=== PATIENT | female | born 1980 | race Caucasian/White ===

== ENCOUNTER 2016-05-02 23:28 | Emergency (ER) | payer OTHER ==
[~2016-05-02] VITALS: Ht 162.6 cm; Wt 99.1 kg
[~2016-05-02 23:28] MED LIST: FLUO20CA35 PO; LORA-741 PO; PRLSR20 PO
[2016-05-02 23:31] VITALS: TEMP 36.5; Ht 162.6 cm; Wt 99.1 kg
[2016-05-02 23:45] VITALS: O2SAT 96
[2016-05-02] MEDS ORDERED: BENZ1CAP90 PO (23:48)
[2016-05-03] MEDS ORDERED: NITROGLYCERIN 0.4 MG SL PER TAB CHARGE SL PRN
[2016-05-03 00:02] LABS: BASO % 0.5 %; BASO ABS # 0.05 K/uL (0-0.2); COMPLETE YES; EOS % 1.8 %; HEMATOCRIT 39.3 % (37-47); IG% 0.2 %; LYMPH % 15.5 %; LYMPH ABS # 1.46 K/uL (1.2-3.4); MEAN CORPUSCULAR HEMOGLOBIN 31.1 pg (25-34); MEAN CORPUSCULAR HGB CONC 33.1 g/dl (32-36); MEAN PLATELET VOLUME 11.1 fL (7.4-10.4); MONO % 6.2 %; NEUT % 75.8 %; PLATELET COUNT 260 K/uL (130-400); RED BLOOD COUNT 4.18 M/uL (4.2-5.4); WHITE BLOOD COUNT 9.42 K/uL (4.8-10.8)
[2016-05-03 00:11] LABS: ALT/SGPT 36 U/L (12-78); BLOOD UREA NITROGEN 10 mg/dl (7-18); BUN/CREATININE RATIO 11.3 (10-20); CALCIUM 9.2 mg/dl (8.5-10.1); CARBON DIOXIDE 25 mmol/L (21-32); CHLORIDE 104 mmol/L (98-107); CREATININE 0.86 mg/dl (0.60-1.20); GLUCOSE 96 mg/dl (70-99); POTASSIUM 4.1 mmol/L (3.5-5.1); SODIUM 141 mmol/L (136-145)
[2016-05-03 00:16] LABS: ALKALINE PHOSPHATASE 89 U/L (45-117); AST/SGOT 19 U/L (15-37)
[2016-05-03 00:28] LABS: PREG INTERNAL NEGATIVE QC NEG CLEAR BACKGROUND; PREG INTERNAL POSITIVE QC POS CONTROL LINE
[2016-05-03] MEDS ORDERED: LEVO-18 PO (02:09)
[2016-05-03] MEDS ORDERED: LEVOFLOXACIN 250 MG TAB PO ONE (02:15)
[2016-05-03] MEDS ORDERED: ALBUTEROL HFA 8 GM INHALER INH ONE (02:15)
--- NOTE | 2016-05-03 02:19 | EMERGENCY ROOM VISIT NOTE ---
History Report prepared by Carmelo: Kelsi Lorenzo Under the Supervision of: Dr. Lilliam Crespo M.D. First contact with patient: 23:47 Chief Complaint: CHEST PAIN Stated Complaint: CHEST PAIN Nursing Triage Summary: pt c/o cough for a couple days, went to PCP and received cough medicine. patient states she started having intermittent chest tightness last night with numbness and tingling in bilateral arms. pain went away. pt states this evening around 5 pt c/o midsternal chest pain, numbness to left arm and SOB. patient stated pain subsided once the engineer internship arrived to the house but has now increased to 8/10 in ER. patient denies SOB but c/o some left arm numbness. prehospital patient received 4 baby asa patient was in the [facility] 2 weeks ago for 1 week History of Present Illness The patient is a 35 year old female who presents to the Emergency Room with complaints of intermittent chest pain that began yesterday. The patient states that she had a cough, sore throat, ear ache, and chest tightness. She saw her PCP yesterday and her blood pressure was normal, but her heart rate was elevated. Her doctor did see some fluid behind her ears. This evening, the patient continued to have central chest pain and also developed tingling in her hands and fingers. She does have some shortness of breath when her pain is at its worst. Currently, she complains of some left leg pain and generalized weakness. She is not on any control or hormone therapies. She does not smoke. The patient states that she was in the emergency room about 2 weeks ago for similar symptoms. She had high blood pressure issues years ago but has not had problems recently. Per nursing notes, the patient was given 4 baby aspirin prior to arrival. Source of History: patient Onset: yesterday Position: chest (central) Quality: other (tightness) Timing: intermittent Associated Symptoms: + SOB (with intense pain), + weakness Note: Other symptoms: hand/finger tingling, left leg pain Review of Systems See HPI for pertinent positives & negatives. A total of 10 systems reviewed and were otherwise negative. Past Medical & Surgical Medical Problems: (1) Abdominal pain (2) Abdominal pain (3) Anxiety Disorder, Unspecified (4) Gastro-Esophageal Reflux Disease Without Esophagitis Surgical Problems: (1) Cholecystectomy (2) H/O colonoscopy (3) H/O lumbar discectomy (4) Hiatal hernia Family History Diabetes mellitus Heart disease Hypertension Kidney disease Kidney stones Seizures Social History Smoking Status: Never Smoker Alcohol Use: none Drug Use: none Marital Status: Housing Status: lives with family Occupation Status: employed Current/Historical Medications Scheduled Levofloxacin (Levaquin), 750 MG PO DAILY Scheduled PRN Benzonatate (Tessalon Perles), 200 MG PO TID PRN for Cough Allergies Coded Allergies: Ibuprofen (Verified Allergy, Intermediate, "throat swelling.", 01/26/16) Vinegar (Verified Allergy, Unknown, SWELLING IN THROAT, 01/26/16) Physical Exam Vital Signs Date Time Temp Pulse Resp B/P Pulse Ox O2 Delivery O2 Flow Rate FiO2 05/03/16 02:24 58 20 112/79 96 05/03/16 01:33 75 20 124/81 95 Room Air 05/03/16 00:20 67 20 128/85 93 Room Air 05/03/16 00:05 102 20 138/99 98 Room Air 05/02/16 23:45 96 Room Air 05/02/16 23:40 68 05/02/16 23:31 36.5 71 18 152/106 97 Room Air 05/02/16 23:31 98 Room Air Physical Exam Vital signs reviewed. General: Well-appearing 35 year old female, in no significant distress. HEENT: No scleral icterus, PERRLA, neck supple. Atraumatic. Cardiovascular: Regular rate and rhythm, no extra sounds. Pulmonary: Clear to auscultation bilaterally, normal work of breathing. Abdomen: Soft, nontender, nondistended, positive bowel sounds. Musculoskeletal: Atraumatic, no peripheral edema. Neurologic: Patient awake alert and oriented x 3, full strength in all 4 extremities. Cranial nerves 2 through 12 grossly intact. Skin: Warm, dry, no rash Medical Decision & Procedures ER Provider Diagnostic Interpretation: X-ray per my interpretation. Chest x-ray: Left perihilar fullness, concerning for atelectasis vs. infiltrate. No evidence of failure. Normal mediastinum. Laboratory Results 05/02/16 23:40 Red Blood Count 4.18, Mean Corpuscular Volume 94.0, Mean Corpuscular Hemoglobin 31.1, Mean Corpuscular Hemoglobin Concent 33.1, Mean Platelet Volume 11.1, Neutrophils (%) (Auto) 75.8, Lymphocytes (%) (Auto) 15.5, Monocytes (%) (Auto) 6.2, Eosinophils (%) (Auto) 1.8, Basophils (%) (Auto) 0.5, Neutrophils # (Auto) 7.14, Lymphocytes # (Auto) 1.46, Monocytes # (Auto) 0.58, Eosinophils # (Auto) 0.17, Basophils # (Auto) 0.05 05/02/16 23:40 Test 05/02/16 23:40 05/03/16 00:01 White Blood Count 9.42 K/uL (4.8-10.8) Red Blood Count 4.18 M/uL (4.2-5.4) Hemoglobin 13.0 g/dL (12.0-16.0) Hematocrit 39.3 % (37-47) Mean Corpuscular Volume 94.0 fL (80-100) Mean Corpuscular Hemoglobin 31.1 pg (25-34) Mean Corpuscular Hemoglobin Concent 33.1 g/dl (32-36) Platelet Count 260 K/uL (130-400) Mean Platelet Volume 11.1 fL (7.4-10.4) Neutrophils (%) (Auto) 75.8 % Lymphocytes (%) (Auto) 15.5 % Monocytes (%) (Auto) 6.2 % Eosinophils (%) (Auto) 1.8 % Basophils (%) (Auto) 0.5 % Neutrophils # (Auto) 7.14 K/uL (1.4-6.5) Lymphocytes # (Auto) 1.46 K/uL (1.2-3.4) Monocytes # (Auto) 0.58 K/uL (0.11-0.59) Eosinophils # (Auto) 0.17 K/uL (0-0.5) Basophils # (Auto) 0.05 K/uL (0-0.2) RDW Standard Deviation 46.6 fL (36.4-46.3) RDW Coefficient of Variation 13.6 % (11.5-14.5) Immature Granulocyte % (Auto) 0.2 % Immature Granulocyte # (Auto) 0.02 K/uL (0.00-0.02) Anion Gap 12.0 mmol/L (3-11) Est Creatinine Clear Calc Drug Dose 102.5 ml/min Estimated GFR () 100.0 Estimated GFR (Non- 86.3 BUN/Creatinine Ratio 11.3 (10-20) Calcium Level 9.2 mg/dl (8.5-10.1) Total Bilirubin 0.3 mg/dl (0.2-1) Direct Bilirubin 0.1 mg/dl (0-0.2) Aspartate Amino Transf (AST/SGOT) 19 U/L (15-37) Alanine Aminotransferase (ALT/SGPT) 36 U/L (12-78) Alkaline Phosphatase 89 U/L (45-117) Total Creatine Kinase 56 U/L (26-192) Creatine Kinase MB < 0.5 ng/ml (0.5-3.6) Creatine Kinase MB Ratio (0-3.0) Total Protein 7.1 gm/dl (6.4-8.2) Albumin 3.5 gm/dl (3.4-5.0) Lipase 121 U/L (73-393) Human Chorionic Gonadotropin, Qual NEG (NEG) Bedside D-Dimer 218 ng/mlFEU (0-450) Bedside Troponin I 0.000 ng/ml (0-0.045) Laboratory results per my review. Medications Administered Medications (Trade) Dose Ordered Sig/Eduin Route Start Time Stop Time Status Last Admin Dose Admin Nitroglycerin (Nitrostat Tab) 0.4 mg Q5M PRN SL 05/03/16 00:00 05/03/16 02:46 DC 05/02/16 23:59 0.4 MG Levofloxacin (Levaquin Tab) 750 mg NOW ONCE PO 05/03/16 02:15 05/03/16 02:16 DC 05/03/16 02:17 750 MG Albuterol (Ventolin Hfa Inhaler) 2 puffs NOW ONCE INH 05/03/16 02:15 05/03/16 02:16 DC 05/03/16 02:17 2 PUFFS ECG Indication: chest pain Rate (beats per minute): 70 Rhythm: sinus with SA Findings: no acute ischemic change, no ectopy ED Course 2351: Past medical records reviewed. The patient was evaluated in room B6. A complete history and physical examination was performed. 0000: Ordered Nitroglycerin 0.4 mg SL. 0215: Ordered Albuterol 2 puffs INH, Levofloxacin 750 mg PO. 0217: Upon reevaluation, the patient was resting comfortably. I discussed findings with the patient. She verbalized agreement of the treatment plan. The patient was discharged home. Medical Decision DDx: Acute coronary syndrome, pulmonary embolus, aortic dissection, musculoskeletal pain, pneumonia, pleural effusion, pneumothorax This pt was evaluated and appeared to be in no distress. EKG reveals no acute changes. Pt was given 1 NTG SL with no significant changes. CXR to my interpretation reveals a small area of fullness that with the pt's sx is concerning for PNA. Pt was feeling improved with nebulizer tx. Lab work is unrevealing. Pt was tx with oral Levaquin and dx with albuterol inhaler. She will f/u with her PCP for further management and return to the ED for worsening of symptoms or any medical concerns. Impression Primary Impression: Pneumonia Scribe Attestation The scribe's documentation has been prepared under my direction and personally reviewed by me in its entirety. I confirm that the note above accurately reflects all work, treatment, procedures, and medical decision making performed by me. Departure Information Dispostion Home / Self-Care Prescriptions Levofloxacin (LEVAQUIN) 750 Mg Tab 750 MG PO DAILY, #6 TAB Prov: Lilliam Crespo M.D. 05/03/16 Referrals Renetta Pleitez C.R.N.P (PCP) Patient Instructions My [facility] Additional Instructions Diagnosis: Pneumonia Levaquin 750 mg daily for 6 more days. Albuterol 2 puffs every 4 hours as needed for cough/wheeze. Tylenol 650 mg every 6 hours as needed for pain or fever. Follow-up with your primary care provider within the next 2-3 days. Return to the ER for worsening of symptoms or any medical concerns. Problem Qualifiers Primary Impression: Pneumonia Pneumonia type: due to unspecified organism Laterality: left Lung location : unspecified part of lung Qualified Codes: J18.9 - Pneumonia, unspecified organism
[2016-05-03 02:24] VITALS: BP 112/79; PULSE 58; O2SAT 96
--- NOTE | 2016-05-03 07:21 | DIAGNOSTIC IMAGING REPORT ---
SINGLE VIEW CHEST CLINICAL HISTORY: Atypical chest pain. FINDINGS: An AP, portable, upright chest radiograph is compared to study dated 01/06/2014. The cardiomediastinal silhouette is unremarkable. There are low lung volumes. The lungs and pleural spaces are clear. No pneumothorax is seen. The bony thorax is grossly intact. Cholecystectomy clips are identified in the right upper quadrant. IMPRESSION: Low lung volumes with no active disease in the chest. Electronically signed by: Ori Rodrigues M.D. 05/03/2016 7:19 AM Dictated Date/Time: 05/03/2016 7:19 AM
[2016-08-15] MEDS ORDERED: BND25 PO (21:54)
== END 2016-05-03 02:26 | disposition home or self-care (01) ==
LOC: EDBD 23:28 → C.EDB 23:31
DX: J18.9 Pneumonia, unspecified organism (principal); F41.9 Anxiety disorder, unspecified; K21.9 Gastro-esophageal reflux disease without esophagitis; Z90.49 Acquired absence of other specified parts of digestive tract; Z98.890 Other specified postprocedural states; Z79.899 Other long term (current) drug therapy; Z88.8 Allergy status to other drugs, medicaments and biological substances; Z91.018 Allergy to other foods; Z83.3 Family history of diabetes mellitus; Z82.49 Family history of ischemic heart disease and other diseases of the circulatory system; Z84.1 Family history of disorders of kidney and ureter; Z82.0 Family history of epilepsy and other diseases of the nervous system

== ENCOUNTER → 2016-06-20 | Outpatient (CLI) | payer OTHER ==
[~2016-06-20] MED LIST changes: +BENZ1CAP90 PO; +BND25 PO; -LORA-741 PO; +MULT-506 PO; +PRED50TA PO; -PRLSR20 PO; +TRMCR130WC TOP
== END | disposition home or self-care (01) ==
LOC: C.LABPVFM 15:18
PROVIDERS: ATTEND Nurse Practitioner
DX: N92.0 Excessive and frequent menstruation with regular cycle (principal); N95.1 Menopausal and female climacteric states

== ENCOUNTER 2016-08-15 21:20 | Emergency (ER) | payer OTHER ==
[~2016-08-15] VITALS: Ht 157.5 cm; Wt 101.8 kg
[~2016-08-15 21:20] MED LIST changes: -BND25 PO; -FLUO20CA35 PO; -MULT-506 PO; -PRED50TA PO; -TRMCR130WC TOP
[2016-08-15 21:28] VITALS: TEMP 37; Ht 157.5 cm; Wt 101.8 kg
[2016-08-15] MEDS ORDERED: SODIUM CHLORIDE 0.9% 500ML 500 ML IV STA (21:39)
[2016-08-15] MEDS ORDERED: METHYLPREDNISOLONE 125 MG VIAL IV STA (21:39)
[2016-08-15] MEDS ORDERED: FAMOTIDINE IV INJ 40 MG in DEXTROSE 5% 100ML 100 ML IV STA (21:39)
[2016-08-15] MEDS ORDERED: DiphenhydrAMINE HCL 50 MG/ML VIAL IV STA (21:39)
[2016-08-15] MEDS ORDERED: TRMCR130WC TOP (21:54)
[2016-08-15 21:59] LABS: BASO % 0.3 %; BASO ABS # 0.03 K/uL (0-0.2); COMPLETE YES; HEMATOCRIT 38.6 % (37-47); IG% 0.2 %; LYMPH % 14.3 %; LYMPH ABS # 1.39 K/uL (1.2-3.4); MEAN CELL VOLUME 92.8 fL (80-100); MEAN CORPUSCULAR HEMOGLOBIN 30.8 pg (25-34); MEAN CORPUSCULAR HGB CONC 33.2 g/dl (32-36); MEAN PLATELET VOLUME 10.8 fL (7.4-10.4); MONO % 6.6 %; NEUT % 76.6 %; PLATELET COUNT 248 K/uL (130-400); RED BLOOD COUNT 4.16 M/uL (4.2-5.4); WHITE BLOOD COUNT 9.69 K/uL (4.8-10.8)
--- NOTE | 2016-08-15 22:10 | DIAGNOSTIC IMAGING REPORT ---
CHEST ONE VIEW PORTABLE CLINICAL HISTORY: Shortness of breath. COMPARISON STUDY: Chest radiograph May 03, [address] of the chest, abdomen and pelvis January 26, 2016. FINDINGS: Lung volumes are diminished. No consolidation is identified and there is no evidence of pulmonary edema. Bilateral hilar prominence is likely due to pulmonary vessels. Gaseous distention of the stomach is noted. IMPRESSION: 1. Diminished lung volumes. No acute cardiopulmonary findings identified. 2. Symmetric bilateral hilar prominence which is likely due to pulmonary vessels. Follow-up nonemergent PA and lateral chest radiographs are recommended. 3. Gaseous distention of the stomach. Electronically signed by: Agusto Cobb M.D. 08/15/2016 10:09 PM Dictated Date/Time: 08/15/2016 10:06 PM
[2016-08-15 22:15] LABS: BUN/CREATININE RATIO 18.7 (10-20); CREATININE 0.77 mg/dl (0.60-1.20); POTASSIUM 3.7 mmol/L (3.5-5.1)
[2016-08-15 22:37] LABS: CALCIUM 9.3 mg/dl (8.5-10.1)
[2016-08-15] MEDS ORDERED: PRED50TA PO (23:50)
[2016-08-15 23:59] VITALS: BP 108/66; PULSE 79; O2SAT 95
--- NOTE | 2016-08-16 00:28 | EMERGENCY ROOM VISIT NOTE ---
History Report prepared by Carmelo: Sade Dukes Under the Supervision of: Dr. Mt Santana D.O. 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 The patient states that after eating a hoagie she started to feel itchy and her throat started to feel like it was closing up. The patient states that she normally eats hoagies. She states that she is itchy all over her body. 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 The patient states that she took 2 tablets of 25 mg Benadryl and it has not helped resolve her symptoms. The patient states that she also has some chest pain, shortness of breath, abdominal discomfort, a headache, and feels lightheaded. The patient states she has a history hypertension but denies any history of high cholesterol or diabetes. She notes no new detergents, coffee attendant, clothing, perfumes, animals, or trips. 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 Review of Systems See HPI for pertinent positives & negatives. A total of 10 systems reviewed and were otherwise negative. Past Medical & Surgical Medical Problems: (1) Abdominal pain (2) Abdominal pain (3) Anxiety Disorder, Unspecified (4) Gastro-Esophageal Reflux Disease Without Esophagitis Surgical Problems: (1) Cholecystectomy (2) H/O colonoscopy (3) H/O lumbar discectomy (4) Hiatal hernia Family History Diabetes mellitus Heart disease Hypertension Kidney disease Kidney stones Seizures Social History Smoking Status: Never Smoker Alcohol Use: none Drug Use: none Marital Status: Housing Status: lives with family Occupation Status: employed Current/Historical Medications Scheduled Prednisone (Prednisone), 50 MG PO DAILY Triamcinolone Acet (Aristocort 0.1%), 1 APPLN TOP TID Scheduled PRN Diphenhydramine Hcl (Benadryl), 50 MG PO Q4H PRN for ALLERGIC REACTION Allergies Coded Allergies: Pineapple (Verified Allergy, Severe, HIVES-THROAT SWELLS, 08/15/16) Ibuprofen (Verified Allergy, Intermediate, "throat swelling.", 08/15/16) Vinegar (Verified Allergy, Unknown, SWELLING IN THROAT, 08/15/16) Physical Exam Vital Signs Date Time Temp Pulse Resp B/P Pulse Ox O2 Delivery O2 Flow Rate FiO2 08/15/16 23:59 79 18 108/66 95 08/15/16 23:20 72 18 122/70 95 Room Air 08/15/16 22:12 85 08/15/16 21:50 94 Room Air 08/15/16 21:28 37.0 98 18 148/105 99 Room Air Physical Exam GENERAL: Obese, Sitting up in bed, able to talk in full sentences, disheveled. EYE EXAM: normal conjunctiva OROPHARYNX: no exudate, no erythema, lips, buccal mucosa, and tongue normal and mucous membranes are moist NECK: supple, no nuchal rigidity, no adenopathy, non-tender. No stridor. LUNGS: Clear to auscultation. Normal chest wall mechanics HEART: no murmurs, S1 normal and S2 normal ABDOMEN: abdomen soft, non-tender, normo-active bowel sounds, no masses, no rebound or guarding. BACK: Back is symmetrical on inspection and there is no deformity, no midline tenderness, no CVA tenderness. SKIN: Erythema along the chest associated with multiple scratch weaver. UPPER EXTREMITIES: upper extremities are grossly normal. LOWER EXTREMITIES: No pitting edema. NEURO EXAM: Normal sensorium, cranial nerves II-XII intact, normal speech, no weakness of arms, no weakness of legs. Gross sensation intact. Medical Decision & Procedures ER Provider Diagnostic Interpretation: Radiology results as stated below per my review and the radiologist's interpretation: CHEST ONE VIEW PORTABLE CLINICAL HISTORY: Shortness of breath. COMPARISON STUDY: Chest radiograph May 03, [address] of the chest, abdomen and pelvis January 26, 2016. FINDINGS: Lung volumes are diminished. No consolidation is identified and there is no evidence of pulmonary edema. Bilateral hilar prominence is likely due to pulmonary vessels. Gaseous distention of the stomach is noted. IMPRESSION: 1. Diminished lung volumes. No acute cardiopulmonary findings identified. 2. Symmetric bilateral hilar prominence which is likely due to pulmonary vessels. Follow-up nonemergent PA and lateral chest radiographs are recommended. 3. Gaseous distention of the stomach. Electronically signed by: Agusto Cobb M.D. 08/15/2016 10:09 PM Dictated Date/Time: 08/15/2016 10:06 PM Laboratory Results 08/15/16 21:52 Red Blood Count 4.16, Mean Corpuscular Volume 92.8, Mean Corpuscular Hemoglobin 30.8, Mean Corpuscular Hemoglobin Concent 33.2, Mean Platelet Volume 10.8, Neutrophils (%) (Auto) 76.6, Lymphocytes (%) (Auto) 14.3, Monocytes (%) (Auto) 6.6, Eosinophils (%) (Auto) 2.0, Basophils (%) (Auto) 0.3, Neutrophils # (Auto) 7.42, Lymphocytes # (Auto) 1.39, Monocytes # (Auto) 0.64, Eosinophils # (Auto) 0.19, Basophils # (Auto) 0.03 08/15/16 21:52 Test 08/15/16 21:52 White Blood Count 9.69 K/uL (4.8-10.8) Red Blood Count 4.16 M/uL (4.2-5.4) Hemoglobin 12.8 g/dL (12.0-16.0) Hematocrit 38.6 % (37-47) Mean Corpuscular Volume 92.8 fL (80-100) Mean Corpuscular Hemoglobin 30.8 pg (25-34) Mean Corpuscular Hemoglobin Concent 33.2 g/dl (32-36) Platelet Count 248 K/uL (130-400) Mean Platelet Volume 10.8 fL (7.4-10.4) Neutrophils (%) (Auto) 76.6 % Lymphocytes (%) (Auto) 14.3 % Monocytes (%) (Auto) 6.6 % Eosinophils (%) (Auto) 2.0 % Basophils (%) (Auto) 0.3 % Neutrophils # (Auto) 7.42 K/uL (1.4-6.5) Lymphocytes # (Auto) 1.39 K/uL (1.2-3.4) Monocytes # (Auto) 0.64 K/uL (0.11-0.59) Eosinophils # (Auto) 0.19 K/uL (0-0.5) Basophils # (Auto) 0.03 K/uL (0-0.2) RDW Standard Deviation 44.8 fL (36.4-46.3) RDW Coefficient of Variation 13.2 % (11.5-14.5) Immature Granulocyte % (Auto) 0.2 % Immature Granulocyte # (Auto) 0.02 K/uL (0.00-0.02) Anion Gap 10.0 mmol/L (3-11) Est Creatinine Clear Calc Drug Dose 110.7 ml/min Estimated GFR () 113.5 Estimated GFR (Non- 97.9 BUN/Creatinine Ratio 18.7 (10-20) Calcium Level 9.3 mg/dl (8.5-10.1) Laboratory results per my review. Medications Administered Medications (Trade) Dose Ordered Sig/Eduin Route Start Time Stop Time Status Last Admin Dose Admin Sodium Chloride (Nss 500ml) 500 ml @ 999 mls/hr Q31M STAT IV 08/15/16 21:39 08/15/16 22:09 DC 08/15/16 22:01 999 MLS/HR Diphenhydramine HCl (Benadryl Inj) 25 mg NOW STAT IV 08/15/16 21:39 08/15/16 21:41 DC 08/15/16 22:02 25 MG Methylprednisolone Sodium Succinate 125 mg 125 mg NOW STAT IV 08/15/16 21:39 08/15/16 21:41 DC 08/15/16 22:01 125 MG Famotidine/ Dextrose (Pepcid IV Inj/ D5 100ml) 104 ml @ 200 mls/hr NOW STAT IV 08/15/16 21:39 08/15/16 22:10 DC 08/15/16 22:06 200 MLS/HR ECG Indication: other (Allergic reaction) Rate (beats per minute): 90 Rhythm: sinus rhythm Findings: Q waves (Inferior), other (small voltage in the lateral leads) Comparison ECG Date: May 02, 2016 Change: no significant change ED Course ED COURSE: Vital signs were reviewed and showed tachycardic The patients medical record was reviewed The above diagnostic studies were performed and reviewed. ED treatments and interventions as stated above. 2130: The patient was evaluated in room B10. A complete history and physical examination was performed. 2138: Ordered Famotidine 40 mg/Dextrose 104 ml @ 200 mls/hr IV, Solu-Medrol Iv 125 mg IV, Benadryl Inj 25 mg IV, Sodium Chloride 500 ml @ 999 mls/hr IV. 2231: I reevaluated the patient and she states the itching has stopped and she is feeling much better. 2327: Upon reevaluation, the patient is feeling much better.I discussed my findings with the patient and she understands and agrees with the treatment plan. Based on the patients age, coexisting illnesses, exam and lab findings the decision to treat as an outpatient was made.The patient remained stable while under my care.The patient appeared well at the time of discharge. Medical Decision Differential diagnosis:Etiologies such as allergic reaction, anaphylaxis, urticaria, Kwong-Gregg syndrome, toxic epidermal necrolysis, erythema multiforme, cellulitis, as well as others were entertained. Patient is a 36-year-old female who presents the ER following a likely and feeling diffusely itchy. She notes that she started with a rash on her chest and became slightly short of breath. She notes that this feels exactly like her previous allergic reactions to things like pineapple and vinegar. CBC along with BMP was unremarkable. Chest x-ray shows no focal infiltrate. Patient was given IV fluids along with Benadryl, famotidine and steroids. She complete resolution of her symptoms. EKG was unremarkable. Patient was updated regards to her findings was discharged follow-up with her primary care doctor. Discussed with Pt concerning signs and symptoms to watch out for. Pt was instructed to follow up with their PCP and discussed with the patient their option to return to the ED at anytime for persistent or worsening symptoms. The appropriate anticipatory guidance and out-patient management, including indications for return to the emergency department, were explained at length to the patient and understood. Impression Primary Impression: Allergic reaction Scribe Attestation The scribe's documentation has been prepared under my direction and personally reviewed by me in its entirety. I confirm that the note above accurately reflects all work, treatment, procedures, and medical decision making performed by me. Departure Information Dispostion Home / Self-Care Prescriptions Prednisone (PREDNISONE) 50 Mg Tab 50 MG PO DAILY for 2 Days, #2 TAB Prov: Mt Santana, 08/15/16 Referrals Maik,Renetta, C.R.N.P (PCP) Forms HOME CARE DOCUMENTATION FORM, IMPORTANT VISIT INFORMATION Patient Instructions My [facility] Additional Instructions Please follow up with your primary care doctor with in the next 24 hours. Any worsening of your symptoms, please return to the ED immediately. This includes trouble breathing, swelling of your throat, trouble swallowing, shortness breath , or any other concerning signs or symptoms from your standpoint. Please take 50 mg of Benadryl every 6 hours as needed for itching. Please take the steroids as prescribed tomorrow if the itching and swelling continues. Problem Qualifiers Primary Impression: Allergic reaction Encounter type: initial encounter Qualified Codes: T78.40XA - Allergy, unspecified, initial encounter
[2017-01-13] MEDS ORDERED: DIPH25CA5 PO (21:54)
== END 2016-08-15 23:59 | disposition home or self-care (01) ==
LOC: C.EDB 21:21
DX: T78.40XA Allergy, unspecified, initial encounter (principal); X58.XXXA Exposure to other specified factors, initial encounter; F41.9 Anxiety disorder, unspecified; K21.9 Gastro-esophageal reflux disease without esophagitis; Z90.49 Acquired absence of other specified parts of digestive tract; Z98.890 Other specified postprocedural states; Z88.6 Allergy status to analgesic agent; Z91.018 Allergy to other foods; Z83.3 Family history of diabetes mellitus; Z82.49 Family history of ischemic heart disease and other diseases of the circulatory system; Z84.1 Family history of disorders of kidney and ureter; Z82.0 Family history of epilepsy and other diseases of the nervous system

== ENCOUNTER 2016-09-24 19:31 | Emergency (ER) | payer OTHER ==
[~2016-09-24] VITALS: Ht 160 cm; Wt 99.9 kg
[~2016-09-24 19:31] MED LIST changes: -BENZ1CAP90 PO; +TRMCR130WC TOP
[2016-09-24 19:38] VITALS: Ht 160 cm; Wt 99.9 kg
[2016-09-24 19:41] VITALS: O2SAT 98
[2016-09-24] MEDS ORDERED: MULT-506 PO (20:22)
[2016-09-24] MEDS ORDERED: FLUO20CA35 PO (20:22)
[2016-09-24 20:24] LABS: HEMATOCRIT 41.6 % (37-47); MEAN CELL VOLUME 93.1 fL (80-100); MEAN CORPUSCULAR HEMOGLOBIN 30.4 pg (25-34); MEAN CORPUSCULAR HGB CONC 32.7 g/dl (32-36); MEAN PLATELET VOLUME 12.3 fL (7.4-10.4); PLATELET COUNT 219 K/uL (130-400); RED BLOOD COUNT 4.47 M/uL (4.2-5.4); WHITE BLOOD COUNT 8.67 K/uL (4.8-10.8)
--- NOTE | 2016-09-24 20:38 | DIAGNOSTIC IMAGING REPORT ---
CHEST ONE VIEW PORTABLE HISTORY: Atypical chest pain/ SOB COMPARISON: Chest 08/15/2016. FINDINGS: The lungs are clear. Cardiac silhouette is normal in size. No pleural effusions. No pneumothorax. Low lung volumes. IMPRESSION: No acute process. Electronically signed by: Cody Sow M.D. 09/24/2016 8:36 PM Dictated Date/Time: 09/24/2016 8:35 PM
[2016-09-24 20:54] LABS: BUN/CREATININE RATIO 11.1 (10-20); CALCIUM 9.4 mg/dl (8.5-10.1); CREATININE 1.1 mg/dl (0.60-1.20)
[2016-09-24 21:13] LABS: CKMB/CK RATIO 0.4 (0-3.0)
[2016-09-24] MEDS ORDERED: ASPIRIN 81 MG CHEW PO STA (21:38)
[2016-09-24 22:46] VITALS: BP 136/87; PULSE 69; TEMP 36.8; O2SAT 98
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
[2017-01-13] MEDS ORDERED: DIPH25CA5 PO (21:54)
== END 2016-09-24 22:47 | disposition home or self-care (01) ==
LOC: C.EDB 19:32 → C.EDC 22:47
DX: R07.9 Chest pain, unspecified (principal); I10 Essential (primary) hypertension; R51 Headache; R20.2 Paresthesia of skin; F41.9 Anxiety disorder, unspecified; K21.9 Gastro-esophageal reflux disease without esophagitis; Z90.49 Acquired absence of other specified parts of digestive tract; Z98.890 Other specified postprocedural states; Z79.899 Other long term (current) drug therapy

== ENCOUNTER 2017-01-13 15:27 | Emergency (ER) | payer OTHER ==
[~2017-01-13] VITALS: Ht 162.6 cm; Wt 100.7 kg
[~2017-01-13 15:27] MED LIST changes: +FLUO20CA35 PO; +MULT-506 PO
[2017-01-13 15:38] VITALS: TEMP 37; Ht 162.6 cm; Wt 100.7 kg
[2017-01-13] MEDS ORDERED: SODIUM CHLORIDE 0.9% 1000ML 1,000 ML IV STA (16:26)
[2017-01-13] MEDS ORDERED: ACETAMINOPHEN 325 MG TAB PO STA (16:36)
--- NOTE | 2017-01-13 16:37 | EMERGENCY ROOM VISIT NOTE ---
History Report prepared by Carmelo: David Vilchis Under the Supervision of: Dr. Judson Murphy M.D. First contact with patient: 16:15 Chief Complaint: PELVIC PAIN Stated Complaint: MISCARRIAGE LAST WEEK,PELVIC PAIN History of Present Illness The patient is a 36 year old female who presents to the Emergency Room with complaints of worsening pelvic pain that began yesterday. She rates her pain a 6 /10 in severity. This has never happened to her before. Last week, the patient had a miscarriage. Her last normal menstrual cycle was 9 weeks ago. She notes that she was 1 day late on her period, but it was abnormal so she thought she was . They did a test which was negative. The patient states that this is normal for her, to be with a negative test. After this, she began to have vaginal bleeding after exertion intermittently over 1 week. She denies any fevers, chills, vomiting, or burning with urination. She notes some pain in her pelvis with urination. She states that she never had a confirmed , but her doctor wanted her to be checked. She also has a headache with weakness. She denies any current bleeding or discharge. She has never had a successful . She had three miscarriages. She had some diarrhea this morning. Source of History: patient Onset: yesterday Position: other (Pelvis) Symptom Intensity: 6/10 Quality: ache Timing: worsening Associated Symptoms: + headache, + nausea, + diarrhea, + weakness, No fevers , No chills, No vomiting, No urinary symptoms Review of Systems See HPI for pertinent positives and negatives. A total of ten systems were reviewed and were otherwise negative. Past Medical & Surgical Medical Problems: (1) Abdominal pain (2) Abdominal pain (3) Anxiety Disorder, Unspecified (4) Gastro-Esophageal Reflux Disease Without Esophagitis Surgical Problems: (1) Cholecystectomy (2) H/O colonoscopy (3) H/O lumbar discectomy (4) Hiatal hernia Family History Diabetes mellitus Heart disease Hypertension Kidney disease Kidney stones Seizures Social History Smoking Status: Never Smoker Alcohol Use: none Drug Use: none Marital Status: Housing Status: lives with family Occupation Status: employed Current/Historical Medications Scheduled PRN Acetaminophen (Tylenol), 1,000 MG PO Q6 PRN for Pain Diphenhydramine Hcl (Benadryl), 50 MG PO Q4H PRN for ALLERGIC REACTION Lorazepam (Lorazepam), 0.5 MG PO DAILY PRN for Anxiety Omeprazole (Prilosec), 20 MG PO DAILY PRN for Dyspepsia Allergies Coded Allergies: Ibuprofen (Verified Allergy, Severe, "throat swelling.", 09/24/16) Pineapple (Verified Allergy, Severe, HIVES-THROAT SWELLS, 09/24/16) Vinegar (Verified Allergy, Severe, SWELLING IN THROAT, 09/24/16) Physical Exam Vital Signs Date Time Temp Pulse Resp B/P (MAP) Pulse Ox O2 Delivery O2 Flow Rate FiO2 01/13/17 22:10 73 20 135/74 98 Room Air 01/13/17 20:25 65 18 131/99 99 Room Air 01/13/17 18:49 66 24 115/77 98 Room Air 01/13/17 17:32 66 01/13/17 17:21 63 20 110/70 99 Room Air 01/13/17 15:38 37.0 73 20 148/95 98 Room Air Physical Exam GENERAL: Awake, alert, well-appearing, in no distress HENT: Normocephalic, atraumatic. Oropharynx unremarkable. EYES: Normal conjunctiva. Sclera non-icteric. NECK: Supple. No nuchal rigidity. FROM. No JVD. RESPIRATORY: Clear to auscultation. CARDIAC: Regular rate, normal rhythm. Extremities warm and well perfused. Pulses equal. ABDOMEN: Soft, non-distended. Mild suprapubic tenderness to palpation. No peritoneal signs. No rebound or guarding. No masses. RECTAL: Deferred. : Normal external genetalia. No vaginal bleeding or discharged. Closed Os. No CMT. MUSCULOSKELETAL: Chest examination reveals no tenderness. The back is symmetrical on inspection without obvious abnormality. There is no CVA tenderness to palpation. No joint edema. LOWER EXTREMITIES: Calves are equal size bilaterally and non-tender. No edema. No discoloration. NEURO: Normal sensorium. No sensory or motor deficits noted. SKIN: No rash or jaundice noted. Medical Decision & Procedures ER Provider Diagnostic Interpretation: Radiology results as stated below per my review and radiologist interpretation: TRANSVAG-FEMALE PELVIS, PELVIC COMPLETE NON OB CLINICAL HISTORY: 36 years-old Female presenting with lower pain, r/o ectopic/SAB, recent miscarriage. TECHNIQUE: Real-time grayscale and color and spectral Doppler ultrasound imaging of the pelvis was performed first using a transabdominal probe and subsequently transvaginal for better characterization. COMPARISON: 01/04/2015. FINDINGS: Uterus: Hypoechoic intramural uterine mass consistent with fibroid measuring 1.6 x 1.8 x 1.4 cm. Anteverted. The uterus measures 9.5 x 4.0 x 5.3 cm. Endometrial stripe measures 10 mm in thickness. Endometrium normal-appearing. Cervix contains both in cysts and trace endocervical fluid. Right adnexa: Right ovary contains multiple prominent follicles. Right ovary measures 3.3 x 2.0 x 2.4 cm. Normal color Doppler flow and arterial and venous waveforms within the ovarian parenchyma. 1.5 x 0.7 x 0.8 cm simple cyst adjacent to the right ovary may represent an exophytic follicle versus a paraovarian simple cyst. Left adnexa: Left ovary contains multiple prominent follicles. Left ovary measures 2.3 x 2.0 x 1.4 cm. Normal color Doppler flow and arterial and venous waveforms within the ovarian parenchyma. Other: Trace free fluid, likely physiologic. IMPRESSION: 1. No ovarian torsion or significant abnormality. 2. No evidence of retained products of conception. Electronically signed by: Juan Jose Portillo M.D. 01/13/2017 7:53 PM Dictated Date/Time: 01/13/2017 7:49 PM Laboratory Results 01/13/17 17:00 Red Blood Count 4.50, Mean Corpuscular Volume 92.0, Mean Corpuscular Hemoglobin 29.8, Mean Corpuscular Hemoglobin Concent 32.4, Mean Platelet Volume 10.5, Neutrophils (%) (Auto) 77.1, Lymphocytes (%) (Auto) 14.5, Monocytes (%) (Auto) 6.3, Eosinophils (%) (Auto) 1.8, Basophils (%) (Auto) 0.2, Neutrophils # (Auto) 7.46, Lymphocytes # (Auto) 1.40, Monocytes # (Auto) 0.61, Eosinophils # (Auto) 0.17, Basophils # (Auto) 0.02 01/13/17 17:00 Test 01/13/17 17:00 01/13/17 22:25 White Blood Count 9.67 K/uL (4.8-10.8) Red Blood Count 4.50 M/uL (4.2-5.4) Hemoglobin 13.4 g/dL (12.0-16.0) Hematocrit 41.4 % (37-47) Mean Corpuscular Volume 92.0 fL (80-100) Mean Corpuscular Hemoglobin 29.8 pg (25-34) Mean Corpuscular Hemoglobin Concent 32.4 g/dl (32-36) Platelet Count 259 K/uL (130-400) Mean Platelet Volume 10.5 fL (7.4-10.4) Neutrophils (%) (Auto) 77.1 % Lymphocytes (%) (Auto) 14.5 % Monocytes (%) (Auto) 6.3 % Eosinophils (%) (Auto) 1.8 % Basophils (%) (Auto) 0.2 % Neutrophils # (Auto) 7.46 K/uL (1.4-6.5) Lymphocytes # (Auto) 1.40 K/uL (1.2-3.4) Monocytes # (Auto) 0.61 K/uL (0.11-0.59) Eosinophils # (Auto) 0.17 K/uL (0-0.5) Basophils # (Auto) 0.02 K/uL (0-0.2) RDW Standard Deviation 44.1 fL (36.4-46.3) RDW Coefficient of Variation 13.2 % (11.5-14.5) Immature Granulocyte % (Auto) 0.1 % Immature Granulocyte # (Auto) 0.01 K/uL (0.00-0.02) Urine Color YELLOW Urine Appearance CLOUDY (CLEAR) Urine pH 5.0 (4.5-7.5) Urine Specific [place] 1.031 (1.000-1.030) Urine Protein NEG (NEG) Urine Glucose (UA) NEG (NEG) Urine Ketones NEG (NEG) Urine Occult Blood NEG (NEG) Urine Nitrite NEG (NEG) Urine Bilirubin NEG (NEG) Urine Urobilinogen NEG (NEG) Urine Leukocyte Esterase NEG (NEG) Urine WBC (Auto) 1-5 /hpf (0-5) Urine RBC (Auto) 0-4 /hpf (0-4) Urine Hyaline Casts (Auto) 1-5 /lpf (0-5) Urine Epithelial Cells (Auto) >30 /lpf (0-5) Urine Bacteria (Auto) NEG (NEG) Urine Crystals CALCIUM OXALATE (NONE Anion Gap 7.0 mmol/L (3-11) Est Creatinine Clear Calc Drug Dose 127.6 ml/min Estimated GFR () 128.0 Estimated GFR (Non- 110.4 BUN/Creatinine Ratio 14.8 (10-20) Calcium Level 9.3 mg/dl (8.5-10.1) Total Bilirubin 0.5 mg/dl (0.2-1) Direct Bilirubin 0.1 mg/dl (0-0.2) Aspartate Amino Transf (AST/SGOT) 18 U/L (15-37) Alanine Aminotransferase (ALT/SGPT) 33 U/L (12-78) Alkaline Phosphatase 88 U/L (45-117) Total Protein 7.4 gm/dl (6.4-8.2) Albumin 3.9 gm/dl (3.4-5.0) Lipase 92 U/L (73-393) Human Chorionic Gonadotropin, Quant < 1 mIU/mL Date/Time Source Procedure Growth Status 01/13/17 22:25 Vaginal Drainage Trichomonas Preparation - Final Complete Laboratory results reviewed by me Medications Administered Medications (Trade) Dose Ordered Sig/Eduin Route Start Time Stop Time Status Last Admin Dose Admin Sodium Chloride 1,000 ml @ 999 mls/hr Q1H1M STAT IV 01/13/17 16:26 01/13/17 17:26 DC 01/13/17 16:26 999 MLS/HR Acetaminophen (Tylenol Tab) 650 mg NOW STAT PO 01/13/17 16:36 01/13/17 16:38 DC 01/13/17 17:19 650 MG ED Course 1615: The patient was evaluated in room B10. A complete history and physical exam was performed. 1626: Ordered Sodium Chloride 1000 ml @ 999 mls/hr IV 1636: Ordered Tylenol Tab 650 mg PO 2230: I reevaluated the patient. Discussed results and discharge instructions: She verbalized understanding and agreement. The patient is ready for discharge. Medical Decision I reviewed the patient's past medical history, medications, and the nursing notes as described above. Differential diagnosis includes but is not limited to: miscarriage, ectopic , UTI, pyelonephritis, diverticulitis, appendicitis, renal stone, endometriosis, and ruptured cyst. The patient is a 36-year-old woman with a history of prior miscarriages per her history that have never been confirmed by [facility] emergency department with lower abdominal pain in the setting of a presumed miscarriage in similar fashion as previous with no hCG confirmation per history of present illness. The patient is in no acute distress, afebrile with stable vital signs. Abd soft , Nt/ND. Labs unremarkable. Hcg quant <1. TVUS negative for IUP or retained products. Pelvic exam without bleeding or discharge or CMT. Findings and plan for follow-up d/w patient. Patient agreeable and d/c'd per discharge instructions. Medication Reconcilliation Current Medication List: was personally reviewed by me Blood Pressure Screening Patient's blood pressure: Elevated blood pressure Blood pressure disposition: Elevated BP felt to be situational Impression Primary Impression: Abdominal cramping Scribe Attestation The scribe's documentation has been prepared under my direction and personally reviewed by me in its entirety. I confirm that the note above accurately reflects all work, treatment, procedures, and medical decision making performed by me. Departure Information Dispostion Home / Self-Care Referrals Renetta Pleitez, C.R.N.P (PCP) Forms HOME CARE DOCUMENTATION FORM, IMPORTANT VISIT INFORMATION, WORK / SCHOOL INSTRUCTIONS Patient Instructions Abdominal Pain, ED Cramping Menstrual, My [employer] Additional Instructions Please follow up with your primary care physician in the next 1-3 days for re- evaluation. Your transvaginal ultrasound did not show any signs of or any retained products from . Your exam,lab results, and ultrasound did not show signs of an emergent condition at this time. Take acetaminophen and ibuprofen for pain as needed. Drink plenty of fluids to insure hydration. Return to the emergency department for worsening symptoms as described in the accompanying instructions. TRANSVAG-FEMALE PELVIS, PELVIC COMPLETE NON OB CLINICAL HISTORY: 36 years-old Female presenting with lower pain, r/o ectopic/SAB, recent miscarriage. TECHNIQUE: Real-time grayscale and color and spectral Doppler ultrasound imaging of the pelvis was performed first using a transabdominal probe and subsequently transvaginal for better characterization. COMPARISON: 01/04/2015. FINDINGS: Uterus: Hypoechoic intramural uterine mass consistent with fibroid measuring 1.6 x 1.8 x 1.4 cm. Anteverted. The uterus measures 9.5 x 4.0 x 5.3 cm. Endometrial stripe measures 10 mm in thickness. Endometrium normal-appearing. Cervix contains both in cysts and trace endocervical fluid. Right adnexa: Right ovary contains multiple prominent follicles. Right ovary measures 3.3 x 2.0 x 2.4 cm. Normal color Doppler flow and arterial and venous waveforms within the ovarian parenchyma. 1.5 x 0.7 x 0.8 cm simple cyst adjacent to the right ovary may represent an exophytic follicle versus a paraovarian simple cyst. Left adnexa: Left ovary contains multiple prominent follicles. Left ovary measures 2.3 x 2.0 x 1.4 cm. Normal color Doppler flow and arterial and venous waveforms within the ovarian parenchyma. Other: Trace free fluid, likely physiologic.
[2017-01-13 17:06] LABS: BASO % 0.2 %; BASO ABS # 0.02 K/uL (0-0.2); COMPLETE YES; EOS % 1.8 %; HEMATOCRIT 41.4 % (37-47); IG% 0.1 %; LYMPH % 14.5 %; MEAN CORPUSCULAR HEMOGLOBIN 29.8 pg (25-34); MEAN CORPUSCULAR HGB CONC 32.4 g/dl (32-36); MEAN PLATELET VOLUME 10.5 fL (7.4-10.4); MONO % 6.3 %; NEUT % 77.1 %; PLATELET COUNT 259 K/uL (130-400); WHITE BLOOD COUNT 9.67 K/uL (4.8-10.8)
[2017-01-13] MEDS ORDERED: ATV5X PO (17:16)
[2017-01-13] MEDS ORDERED: ACET-1256 PO (17:16)
[2017-01-13] MEDS ORDERED: PRLSR20 PO (17:16)
[2017-01-13 17:22] LABS: URINE APPEARANCE CLOUDY (CLEAR); URINE BILIRUBIN NEG (NEG); URINE COLOR YELLOW; URINE EPITHELIAL CELL AUTO >30 /lpf (0-5); URINE NITRITE NEG (NEG); URINE SPECIFIC GRAVITY 1.031 (1.000-1.030); UROBILINOGEN NEG (NEG); ZZUR CULT IF INDIC CLEAN CATCH NO
[2017-01-13 17:25] LABS: MANUAL MICROSCOPIC REQUIRED? NO; REVIEW REQ? YES
[2017-01-13 17:35] LABS: BUN/CREATININE RATIO 14.8 (10-20); CALCIUM 9.3 mg/dl (8.5-10.1); CREATININE 0.69 mg/dl (0.60-1.20); POTASSIUM 3.8 mmol/L (3.5-5.1)
--- NOTE | 2017-01-13 19:55 | DIAGNOSTIC IMAGING REPORT ---
TRANSVAG-FEMALE PELVIS, PELVIC COMPLETE NON OB CLINICAL HISTORY: 36 years-old Female presenting with lower pain, r/o ectopic/SAB, recent miscarriage. TECHNIQUE: Real-time grayscale and color and spectral Doppler ultrasound imaging of the pelvis was performed first using a transabdominal probe and subsequently transvaginal for better characterization. COMPARISON: 01/04/2015. FINDINGS: Uterus: Hypoechoic intramural uterine mass consistent with fibroid measuring 1.6 x 1.8 x 1.4 cm. Anteverted. The uterus measures 9.5 x 4.0 x 5.3 cm. Endometrial stripe measures 10 mm in thickness. Endometrium normal-appearing. Cervix contains both in cysts and trace endocervical fluid. Right adnexa: Right ovary contains multiple prominent follicles. Right ovary measures 3.3 x 2.0 x 2.4 cm. Normal color Doppler flow and arterial and venous waveforms within the ovarian parenchyma. 1.5 x 0.7 x 0.8 cm simple cyst adjacent to the right ovary may represent an exophytic follicle versus a paraovarian simple cyst. Left adnexa: Left ovary contains multiple prominent follicles. Left ovary measures 2.3 x 2.0 x 1.4 cm. Normal color Doppler flow and arterial and venous waveforms within the ovarian parenchyma. Other: Trace free fluid, likely physiologic. IMPRESSION: 1. No ovarian torsion or significant abnormality. 2. No evidence of retained products of conception. Electronically signed by: Juan Jose Portillo M.D. 01/13/2017 7:53 PM Dictated Date/Time: 01/13/2017 7:49 PM
[2017-01-13] MEDS ORDERED: BND25 PO (21:54)
[2017-01-13 22:10] VITALS: BP 135/74; PULSE 73; O2SAT 98
[2017-01-15 14:57] LABS: CHLAMYDIA TRACH RNA*** NOT DETECTED (NOT DETECTED); GC (NEIS GONORRHOEAE)RNA** NOT DETECTED (NOT DETECTED)
== END 2017-01-13 22:41 | disposition home or self-care (01) ==
LOC: C.EDB 15:30
DX: R10.2 Pelvic and perineal pain (principal); N96 Recurrent pregnancy loss; F41.9 Anxiety disorder, unspecified

== ENCOUNTER → 2017-02-13 | Outpatient (CLI) | payer OTHER ==
[~2017-02-13] MED LIST changes: +ACET-1256 PO; +ATV5X PO; +DIPH25CA5 PO; -FLUO20CA35 PO; -MULT-506 PO; +OPTIRAY 320 IV PRN; +PRLSR20 PO; -TRMCR130WC TOP
--- NOTE | 2017-02-13 11:54 | DIAGNOSTIC IMAGING REPORT ---
ABDOMEN AND PELVIS CT WITH IV AND ORAL CONTRAST CT DOSE: 960.64 mGycm HISTORY: Acute generalized abdominal pain with nausea and rectal bleeding ABD PAIN, NAUSEA, RECTAL BLEEDING TECHNIQUE: Multiaxial CT images of the abdomen and pelvis were performed following the use of intravenous and oral contrast. A dose lowering technique was utilized adhering to the principles of ALARA. COMPARISON STUDY: CT 01/26/2016. FINDINGS: The lung bases are generally clear with only minimal subsegmental bibasilar atelectasis. There is no pneumoperitoneum identified. The imaged inferior cardiac chambers are unremarkable. Prior cholecystectomy. No intrahepatic biliary ductal dilation. There is decreased attenuation of the liver suggesting fatty infiltration. The spleen, pancreas and adrenal glands are within normal limits. The kidneys, ureters, uterus and right adnexum are unremarkable. Cystic structure of the left adnexum, 2.0 cm suggests dominant follicle. Probable lymph node of the right lower pelvis is again seen measuring 9 mm in short axis, unchanged. The abdominal aorta is normal in both course and caliber. No bulky adenopathy identified. There is no bowel obstruction identified. There is no bowel wall thickening. No focal abnormality identified involving the rectum or large bowel. Terminal ileum is unremarkable. The appendix is not well seen. No secondary signs of acute appendicitis. The soft tissues are unremarkable. Small fat filled No focal hernia, diastases 1.2 cm. Soft tissues are unremarkable. Bones appear intact. Moderate intervertebral disc space narrowing at L4-L5 and L5-S1 with facet arthropathy. IMPRESSION: 1. No acute intra-abdominal or intrapelvic abnormality identified. 2. Prior cholecystectomy. 3. 2.0 cm cystic structure of the left adnexum suggests dominant follicle. Electronically signed by: Hussain Horowitz M.D. 02/13/2017 11:53 AM Dictated Date/Time: 02/13/2017 11:45 AM
== END | disposition home or self-care (01) ==
LOC: C.CTS 09:01
PROVIDERS: ATTEND Nurse Practitioner
DX: K62.5 Hemorrhage of anus and rectum (principal); R11.0 Nausea; R10.9 Unspecified abdominal pain; Z90.49 Acquired absence of other specified parts of digestive tract

== ENCOUNTER → 2017-03-28 | Outpatient (CLI) | payer OTHER ==
[~2017-03-28] MED LIST changes: +HYDR-5688 PO; -OPTIRAY 320 IV PRN
--- NOTE | 2017-03-28 08:40 | DIAGNOSTIC IMAGING REPORT ---
PELVIC COMPLETE NON OB HISTORY: 36 years-old Female MENOMETRORRHAGIA the ribs are acute in nature COMPARISON: Pelvic ultrasound 01/13/2017, CT 02/13/2017 TECHNIQUE: Multiple real-time sonographic images of the deep pelvic structures were obtained transabdominally and transvaginally assessing grayscale appearance, color and spectral flow. FINDINGS: TRANSABDOMINAL: Retroflexed uterus measures 6.7 x 3.8 x 5.7 cm. Endometrium measures 0.3 cm. TRANSVAGINAL: Nabothian cysts of the cervix. Intramural leiomyoma of the posterior mid uterine body, 1.5 x 1.7 x 1.4 cm redemonstrated. Retroflexed uterus measures 6.6 x 4.1 x 5.6 cm. Endometrium measures 0.4 cm. There is a 4 x 3 x 5 mm ovoid cystic structure within the region of the right uterine cornua adjacent to the far lateral margin of the endometrium which is nonspecific and appears new from prior study. Right ovary measures 2.6 x 1.2 x 2.3 cm. Dominant follicle right ovary measures up to 1.2 cm. No evidence of right ovarian torsion. Arterial inflow to the right ovary is documented. Left ovary measures 2.4 x 2.3 x 2.3 cm and demonstrates multiple follicles as well. Complex mildly echogenic lesion of the left ovary measuring up to 1.4 x 1.6 x 1.0 cm is noted suggesting a hemorrhagic cyst. No significant free pelvic fluid. IMPRESSION: 1. 5 mm cystic structure within the region of the right uterine cornua adjacent to the far lateral margin of the endometrium is nonspecific, not seen on comparison study. Differential considerations would include an endometrial cyst or gestational sac. If the patient demonstrates a positive qualitative beta hCG test, an interstitial ectopic would be considered. Follow-up recommended. 2. Probable left corpus luteum, 1.6 cm. 3. No evidence of ovarian torsion or significant free pelvic fluid. 4. Fibroid uterus. The above report was generated using voice recognition software. It may contain grammatical, syntax or spelling errors. Electronically signed by: Hussain Horowitz M.D. 03/28/2017 8:39 AM Dictated Date/Time: 03/28/2017 8:26 AM
== END | disposition home or self-care (01) ==
LOC: C.ULTR 07:31
PROVIDERS: ATTEND Obstetrics & Gynecology
DX: N92.0 Excessive and frequent menstruation with regular cycle (principal); D25.9 Leiomyoma of uterus, unspecified

== ENCOUNTER → 2017-04-04 | Outpatient (CLI) | payer OTHER ==
--- NOTE | 2017-04-04 08:31 | DIAGNOSTIC IMAGING REPORT ---
ULTRASOUND OF THE THYROID GLAND CLINICAL HISTORY: Nontoxic goiter. COMPARISON STUDY: Chest CT dated 01/26/2016. TECHNIQUE: Real-time, grayscale, and color flow sonography of the thyroid gland is performed utilizing a high-frequency linear transducer. Images are reviewed in the transverse and longitudinal planes. FINDINGS: Right lobe: The right lobe of the thyroid gland is normal in size and homogeneous in echotexture, measuring 3.8 x 1.5 x 1.7 cm. There is a hypoechoic solid and cystic nodule in the lower pole measuring 1.1 x 0.8 x 1.3 cm. A honeycomb nodule in the posterior midpole measures 0.5 x 0.4 x 0.5 cm, and a hypoechoic nodule in the upper pole measures 0.5 x 0.3 x 0.6 cm. A hypoechoic nodule containing small foci of colloid in the upper pole measures 0.7-0 0.5 x 0.5 cm. Left lobe: The left lobe of the thyroid gland is normal in size and homogeneous in echotexture, measuring 4.0 x 1.2 x 1.5 cm. A hypoechoic solid nodule in the lower pole measures 0.9 x 0.7 x 0.9 cm. Isthmus: The thyroid isthmus is normal in appearance and measures 0.2 cm in AP diameter. IMPRESSION: There are findings of multinodular goiter as above. These nodules do not meet criteria for fine-needle aspiration. 12 month sonographic follow-up is recommended. Electronically signed by: Ori Rodrigues M.D. 04/04/2017 8:29 AM Dictated Date/Time: 04/04/2017 8:27 AM
== END | disposition home or self-care (01) ==
LOC: C.ULTR 07:43
PROVIDERS: ATTEND Obstetrics & Gynecology
DX: E04.2 Nontoxic multinodular goiter (principal); E01.0 Iodine-deficiency related diffuse (endemic) goiter

== ENCOUNTER → 2017-04-21 | Outpatient (CLI) | payer OTHER ==
[~2017-04-21] MED LIST changes: -HYDR-5688 PO
--- NOTE | 2017-04-21 17:30 | ECHOCARDIOGRAM REPORT ---
*NOTICE TO RECEIVING CONSTITUTION PARTY AGENCY This information is strictly Confidential and protected under [place] law. [place] law prohibits you from making any further disclosure of this information unless further disclosure is expressly permitted by the written consent of the person to whom it pertains or is authorized by law. A general authorization for the release of medical or other information is not sufficient for this purpose. Hospital accepts no responsibility if the information is made available to any other person, INCLUDING THE PATIENT. Interpretation Summary * Name: DEVON MONET Study Date: 04/21/2017 01:47 PM BP: 128/90 mmHg * Patient Location: [facility] HR: 71 * : 1980 (M/d/yyyy) Gender: Female Height: 64 in * Age: 36 yrs Ethnicity: CA Weight: 222 lb * Ordering Physician: Мария Pérez * Referring Physician: Мария Pérez PA-C * Performed By: Tea Price RDCS * * Reason For Study: Chest Pain * BSA: 2.0 m2 * -- Conclusions -- * 1. Normal LV size and wall thickness. * 2. Normal LV function. LVEF 60-65%. No regional wall motion abnormalities. * 3. Normal RV size and function. * 4. No significant valvular pathology. * 5. No prior studies for comparison. Procedure Details * A complete two-dimensional transthoracic echocardiogram was performed (2D, M-mode, Doppler and color flow Doppler). * A contrast injection of Definity was performed to improve assessment of LV function. * Contrast was injected into an intravenous site in the right arm. * One vial of Definity ultrasound contrast was diluted in normal saline to a total volume of 10 ml. A total of '1' ml of solution was administered during imaging. * Lot # [id number] of Definity utilized for procedure. * Expiration date . * The attending nurse who injected the contrast agent was Casie Lozano RN. Left Ventricle * The left ventricle is grossly normal size. * There is normal left ventricular wall thickness. * Ejection Fraction = 60-65%. * No regional wall motion abnormalities noted. Right Ventricle * The right ventricle is grossly normal size. * The right ventricular systolic function is normal as assessed by tricuspid annular plane systolic excursion (TAPSE) (normal >1.5 cm). Atria * The left atrial size is normal. * Right atrial size is normal. * No ASD detected; PFO is not assessed. Mitral Valve * The mitral valve is grossly normal. * There is no mitral valve stenosis. * Significant mitral regurgitation is absent. Tricuspid Valve * There is no tricuspid stenosis. * Significant tricuspid regurgitation is absent. Aortic Valve * The aortic valve opens well. * The aortic valve is trileaflet. * No hemodynamically significant valvular aortic stenosis. * There is no significant aortic regurgitation. Pulmonic Valve * There is no pulmonic valvular stenosis. * Trace pulmonic valvular regurgitation. Great Vessels * The aortic root and proximal ascending aorta are normal sized. Pericardium/Pleural * There is no pericardial effusion. Great Vessels * Normal inferior vena cava size and collapsability with sniff indicates a normal right atrial pressure of 3 mmHg MMode 2D Measurements and Calculations IVSd 0.98 cm IVSs 1.3 cm LVIDd 4.1 cm LVIDs 2.6 cm LVPWd 1.1 cm LVPWs 1.5 cm IVS/LVPW 0.91 FS 36.9 % EDV(Teich) 74.9 ml ESV(Teich) 24.5 ml EF(Teich) 67.3 % EDV(cubed) 69.7 ml ESV(cubed) 17.5 ml EF(cubed) 74.9 % % IVS thick 34.8 % % LVPW thick 37.6 % LV mass(C)d 137.3 grams LV mass(C)dI 67.2 grams/m\S\2 LV mass(C)s 116.0 grams LV mass(C)sI 56.7 grams/m\S\2 SV(Teich) 50.4 ml SI(Teich) 24.6 ml/m\S\2 SV(cubed) 52.2 ml SI(cubed) 25.5 ml/m\S\2 Ao root diam 2.9 cm Ao root area 6.8 cm\S\2 LA dimension 3.5 cm LA/Ao 1.2 LVAd ap4 27.0 cm\S\2 LVLd ap4 8.3 cm EDV(MOD-sp4) 75.3 ml EDV(sp4-el) 74.7 ml LVAs ap4 13.0 cm\S\2 LVLs ap4 6.9 cm ESV(MOD-sp4) 24.3 ml ESV(sp4-el) 21.0 ml EF(MOD-sp4) 67.8 % EF(sp4-el) 71.9 % LVAd ap2 23.5 cm\S\2 LVLd ap2 8.4 cm EDV(MOD-sp2) 56.3 ml EDV(sp2-el) 55.9 ml LVAs ap2 10.2 cm\S\2 LVLs ap2 6.3 cm ESV(MOD-sp2) 14.2 ml ESV(sp2-el) 13.9 ml EF(MOD-sp2) 74.8 % EF(sp2-el) 75.1 % LVLd %diff 1.5 % EDV(MOD-bp) 65.8 ml LVLs %diff -8.21 % ESV(MOD-bp) 18.4 ml EF(MOD-bp) 72.0 % SV(MOD-sp4) 51.1 ml SI(MOD-sp4) 25.0 ml/m\S\2 SV(MOD-sp2) 42.1 ml SI(MOD-sp2) 20.6 ml/m\S\2 SV(MOD-bp) 47.3 ml SI(MOD-bp) 23.2 ml/m\S\2 SV(sp4-el) 53.7 ml SI(sp4-el) 26.3 ml/m\S\2 SV(sp2-el) 42.0 ml SI(sp2-el) 20.5 ml/m\S\2 Doppler Measurements and Calculations MV E max briseida 69.7 cm/sec MV A max briseida 68.7 cm/sec MV E/A 1.0 MV dec time 0.18 sec Ao V2 max 105.3 cm/sec Ao max PG 4.4 mmHg Ao max PG (full) 0.30 mmHg LV V1 max PG 4.1 mmHg LV V1 max 101.6 cm/sec PA V2 max 101.8 cm/sec PA max PG 4.1 mmHg PI max briseida 141.5 cm/sec PI max PG 8.0 mmHg PI dec slope 190.5 cm/sec\S\2 PI P1/2t 217.5 msec
== END ==
LOC: C.CPL 13:34
PROVIDERS: ATTEND Physician Assistant Medical
DX: R07.9 Chest pain, unspecified (principal)

== ENCOUNTER 2017-11-27 16:12 | Emergency (ER) | payer OTHER ==
[~2017-11-27] VITALS: Ht 157.5 cm; Wt 101.4 kg
[2017-11-27 16:17] VITALS: TEMP 36.6; Ht 157.5 cm; Wt 101.4 kg
[2017-11-27] MEDS ORDERED: SODIUM CHLORIDE 0.9% 1000ML 1,000 ML IV STA (16:32)
[2017-11-27] MEDS ORDERED: HYDROmorphone INJ 1 MG/ML SYR IV STA ×2 (16:32→18:54)
[2017-11-27] MEDS ORDERED: ONDANSETRON INJ 2 MG/ML 2 ML VIAL IV STA (16:32)
--- NOTE | 2017-11-27 16:50 | EMERGENCY ROOM VISIT NOTE ---
History First contact with patient: 16:18 Chief Complaint: FLANK PAIN Stated Complaint: F FLANK PAIN/NAUSEA/VOMIT History of Present Illness The patient is a 37 year old female who presents to the Emergency Room with complaints of right flank pain. The patient states that she woke up this morning with pain in her right upper abdomen radiating into her back. She states that the pain worsened after lunch today. She has been nauseous and has had dry heaves. She states the pain is piercing and sharp and rates the discomfort a 10/10. She has taken ndgi-vhz-[id number] medication without relief. She does report a history of a hiatal hernia. She reports a history of kidney stones but is unsure if this is similar. She also states that she has been told in the past that her appendix was inflamed, but she never had it removed. She has had a previous cholecystectomy. She denies urinary symptoms, fever/ chills or changes in her bowel movements. She denies chest pain or shortness of breath. Review of Systems A complete 10 point review of systems was reviewed with the patient with pertinent positives and negatives as per history of present illness. All else were negative. Past Medical/Surgical History Medical Problems: (1) Abdominal pain (2) Abdominal pain (3) Anxiety Disorder, Unspecified (4) Gastro-Esophageal Reflux Disease Without Esophagitis Surgical Problems: (1) Cholecystectomy (2) H/O colonoscopy (3) H/O lumbar discectomy (4) Hiatal hernia Family History Diabetes mellitus Heart disease Hypertension Kidney disease Kidney stones Seizures Social History Smoking Status: Current Every Day Smoker Alcohol Use: none Drug Use: none Marital Status: Housing Status: lives with family Occupation Status: employed Current/Historical Medications Scheduled PRN Acetaminophen (Tylenol), 1,000 MG PO Q6 PRN for Pain Diphenhydramine Hcl (Benadryl), 50 MG PO Q4H PRN for ALLERGIC REACTION Hydrocodone/Acetaminophen 5MG/325MG ([place] 5MG/325MG), 1 TABLET PO Q4H PRN for Pain Lorazepam (Lorazepam), 0.5 MG PO DAILY PRN for Anxiety Omeprazole (Prilosec), 20 MG PO DAILY PRN for Dyspepsia Physical Exam Vital Signs Date Time Temp Pulse Resp B/P (MAP) Pulse Ox O2 Delivery O2 Flow Rate FiO2 11/27/17 20:04 85 20 139/74 100 Room Air 11/27/17 19:20 89 22 141/98 100 Room Air 11/27/17 17:47 90 22 145/82 98 Room Air 11/27/17 16:17 36.6 94 22 137/91 Room Air Physical Exam VITALS: Vitals are noted on the nurse's note and reviewed by myself. Vital signs stable. GENERAL: This is a 37-year-old female, in no acute distress, nondiaphoretic, well-developed well-nourished. SKIN: The skin was without rashes. MOUTH: Mucous membranes moist. NECK: Supple without nuchal rigidity. HEART: Regular rate and rhythm without murmurs gallops or rubs. LUNGS: Clear to auscultation bilaterally without wheezes, rales or rhonchi. ABDOMEN: Positive bowel sounds x 4. Soft, diffuse tenderness over the right upper quadrant, right lower quadrant and across the lower abdomen. No guarding or rebound tenderness. NEURO: Patient was alert and oriented to person place and time. Medical Decision & Procedures ER Provider Diagnostic Interpretation: CT SCAN OF THE ABDOMEN AND PELVIS WITHOUT CONTRAST CLINICAL HISTORY: right flank pain COMPARISON STUDY: 02/13/2017 TECHNIQUE: CT scan of the abdomen and pelvis was performed from the lung bases to the proximal femurs. Images are reviewed in the axial, sagittal, and coronal planes. IV contrast was not administered for this examination. A dose lowering technique was utilized adhering to the principles of ALARA. CT DOSE: 2102.55 mGy.cm FINDINGS: Lower chest: The heart is normal in size and configuration, without pericardial effusion. The lung bases and pleural spaces are clear. Liver: There is mild hepatic steatosis. No focal masses are visualized this noncontrast study. Gallbladder: Surgically absent Spleen: Normal in size and attenuation. Pancreas: Unremarkable. Adrenal glands: Unremarkable. Kidneys: No renal, ureteral, or bladder calculi are visualized. Bowel: There are no transition zones indicate bowel obstruction. There is no acute diverticulitis. The appendix is not visualized with certainty. There are no findings to indicate acute appendicitis. Peritoneum: There is no intraperitoneal free air or abdominal ascites. Vasculature: The abdominal aorta is normal in course and caliber. Adenopathy: None. Pelvic viscera: The uterus is surgically absent. There is a 2 cm left ovarian follicle. Skeletal structures: No destructive osseous lesions are seen. IMPRESSION: 1. No acute intra-abdominal or pelvic findings 2. No renal, ureteral, or bladder calculi identified 3. No evidence of bowel obstruction. No evidence of free air 4. No evidence of acute diverticulitis. No evidence of acute appendicitis. 5. Surgically absent gallbladder and uterus Laboratory Results 11/27/17 17:47 Red Blood Count 4.63, Mean Corpuscular Volume 89.6, Mean Corpuscular Hemoglobin 30.0, Mean Corpuscular Hemoglobin Concent 33.5, Mean Platelet Volume 11.0, Neutrophils (%) (Auto) 71.2, Lymphocytes (%) (Auto) 20.7, Monocytes (%) (Auto) 5.7, Eosinophils (%) (Auto) 1.8, Basophils (%) (Auto) 0.3, Neutrophils # (Auto) 6.82, Lymphocytes # (Auto) 1.98, Monocytes # (Auto) 0.55, Eosinophils # (Auto) 0.17, Basophils # (Auto) 0.03 11/27/17 17:47 Test 11/27/17 17:10 11/27/17 17:47 Urine Color YELLOW Urine Appearance CLEAR (CLEAR) Urine pH 6.5 (4.5-7.5) Urine Specific [place] 1.009 (1.000-1.030) Urine Protein NEG (NEG) Urine Glucose (UA) NEG (NEG) Urine Ketones TRACE (NEG) Urine Occult Blood NEG (NEG) Urine Nitrite NEG (NEG) Urine Bilirubin NEG (NEG) Urine Urobilinogen NEG (NEG) Urine Leukocyte Esterase NEG (NEG) Urine Test NEG (NEG) White Blood Count 9.58 K/uL (4.8-10.8) Red Blood Count 4.63 M/uL (4.2-5.4) Hemoglobin 13.9 g/dL (12.0-16.0) Hematocrit 41.5 % (37-47) Mean Corpuscular Volume 89.6 fL (80-100) Mean Corpuscular Hemoglobin 30.0 pg (25-34) Mean Corpuscular Hemoglobin Concent 33.5 g/dl (32-36) Platelet Count 245 K/uL (130-400) Mean Platelet Volume 11.0 fL (7.4-10.4) Neutrophils (%) (Auto) 71.2 % Lymphocytes (%) (Auto) 20.7 % Monocytes (%) (Auto) 5.7 % Eosinophils (%) (Auto) 1.8 % Basophils (%) (Auto) 0.3 % Neutrophils # (Auto) 6.82 K/uL (1.4-6.5) Lymphocytes # (Auto) 1.98 K/uL (1.2-3.4) Monocytes # (Auto) 0.55 K/uL (0.11-0.59) Eosinophils # (Auto) 0.17 K/uL (0-0.5) Basophils # (Auto) 0.03 K/uL (0-0.2) RDW Standard Deviation 45.5 fL (36.4-46.3) RDW Coefficient of Variation 13.9 % (11.5-14.5) Immature Granulocyte % (Auto) 0.3 % Immature Granulocyte # (Auto) 0.03 K/uL (0.00-0.02) Anion Gap 10.0 mmol/L (3-11) Est Creatinine Clear Calc Drug Dose 123.8 ml/min Estimated GFR () 127.7 Estimated GFR (Non- 110.2 BUN/Creatinine Ratio 16.5 (10-20) Calcium Level 9.8 mg/dl (8.5-10.1) Total Bilirubin 0.5 mg/dl (0.2-1) Direct Bilirubin 0.1 mg/dl (0-0.2) Aspartate Amino Transf (AST/SGOT) 22 U/L (15-37) Alanine Aminotransferase (ALT/SGPT) 38 U/L (12-78) Alkaline Phosphatase 97 U/L (45-117) Total Protein 7.7 gm/dl (6.4-8.2) Albumin 4.0 gm/dl (3.4-5.0) Lipase 82 U/L (73-393) Medications Administered Medications (Trade) Dose Ordered Sig/Eduin Route Start Time Stop Time Status Last Admin Dose Admin Sodium Chloride 1,000 ml @ 999 mls/hr Q1H1M STAT IV 11/27/17 16:32 11/27/17 17:32 DC 11/27/17 16:32 999 MLS/HR Ondansetron HCl (Zofran Inj) 4 mg NOW STAT IV 11/27/17 16:32 11/27/17 16:34 DC 11/27/17 17:19 4 MG Hydromorphone HCl (Dilaudid Inj) 1 mg NOW STAT IV 11/27/17 16:32 11/27/17 16:34 DC 11/27/17 17:19 1 MG Hydromorphone HCl (Dilaudid Inj) 1 mg NOW STAT IV 11/27/17 18:54 11/27/17 18:55 DC 11/27/17 19:03 1 MG Acetaminophen/ Hydrocodone Bitart ([place] 5/325mg Home Pack) 1 homepack UD ONCE PO 11/27/17 20:00 11/27/17 20:01 DC 11/27/17 20:16 1 HOMEPACK Medical Decision Differential diagnosis includes pancreatitis, kidney stone, pyelonephritis, gastritis, herpes zoster, colitis, UTI, appendicitis, among others. The patient is a 37-year-old female who presents today complaining of right flank pain. Labs revealed no leukocytosis and anemia or concerning electrolyte abnormalities. LFTs were within normal limits. Creatinine was within normal limits. Lipase was not elevated. Urinalysis was not suggestive of infection. CT of the abdomen and pelvis without contrast was performed and reveals no acute intra-abdominal findings. The patient was treated with multiple doses of IV narcotics. The etiology of her abdominal/flank pain is unclear. She could have an early presentation of herpes zoster. She will be discharged home with a short course of pain medication and otherwise was advised to keep a bland diet and follow-up with her primary care provider for recheck. The patient's case was reviewed with Dr. Brock, ED attending physician, who agreed with my assessment and treatment plan. Based on the patient's presentation and work up, I feel the patient is stable for outpatient treatment. The patient was educated to return to the emergency department for any worsening of their current condition or new/concerning symptoms. She will follow up with her PCP. [place] Drug Monitoring Program Search Results: patient reviewed within database, no issues identified Medication Reconcilliation Current Medication List: was personally reviewed by me Blood Pressure Screening Patient's blood pressure: Elevated blood pressure Blood pressure disposition: Elevated BP felt to be situational Impression Primary Impression: Right flank pain Departure Information Dispostion Home / Self-Care Condition GOOD Prescriptions Hydrocodone/Acetaminophen 5MG/325MG ([place] 5MG/325MG) Tab 1 TABLET PO Q4H Y for Pain, #12 TAB For Initial Treatment Prov: Paula Tineo ., JUANJOSE 11/27/17 Referrals Renetta Pleitez C.R.N.P (PCP) Patient Instructions My [facility] Additional Instructions You have been treated in the Emergency Department your Abdominal Pain. Laboratory results and imaging studies have ruled out any emergent causes for your abdominal pain which would warrant admission or surgery. You have been prescribed [place] to be used for pain control. This is a narcotic medication. You cannot drive or consume alcohol while on this medicine. This medicine should only be used for pain that cannot be controlled with over-the- counter pain medicines. For pain control, you can use the following quqj-kao-psdwulf medicines (if >12 yo): - Regular strength (325mg/tab) Tylenol (acetaminophen) 2 tabs every 4-6 hours as needed. Do not exceed 12 tablets in a 24 hour period. Avoid taking more than 4 grams (4000 mg) of Tylenol per day. This includes any other sources of acetaminophen you may take on a regular basis. - Regular strength (200 mg/tab) Advil (ibuprofen) 1-2 tabs every 4-6 hours as needed. Do not exceed a dose of 3200 mg per day. Drink plenty of water and stay well hydrated. As with any trip to the Emergency Department, you should follow-up with your Primary Care Provider from today's visit. Return to the emergency department if your symptoms persist despite treatment plan outlined above or if the following symptoms occur: Fever, urinary symptoms , worsening vomiting, or any other new/concerning symptoms.
--- NOTE | 2017-11-27 17:47 | DIAGNOSTIC IMAGING REPORT ---
CT SCAN OF THE ABDOMEN AND PELVIS WITHOUT CONTRAST CLINICAL HISTORY: right flank pain COMPARISON STUDY: 02/13/2017 TECHNIQUE: CT scan of the abdomen and pelvis was performed from the lung bases to the proximal femurs. Images are reviewed in the axial, sagittal, and coronal planes. IV contrast was not administered for this examination. A dose lowering technique was utilized adhering to the principles of ALARA. CT DOSE: 2102.55 mGy.cm FINDINGS: Lower chest: The heart is normal in size and configuration, without pericardial effusion. The lung bases and pleural spaces are clear. Liver: There is mild hepatic steatosis. No focal masses are visualized this noncontrast study. Gallbladder: Surgically absent Spleen: Normal in size and attenuation. Pancreas: Unremarkable. Adrenal glands: Unremarkable. Kidneys: No renal, ureteral, or bladder calculi are visualized. Bowel: There are no transition zones indicate bowel obstruction. There is no acute diverticulitis. The appendix is not visualized with certainty. There are no findings to indicate acute appendicitis. Peritoneum: There is no intraperitoneal free air or abdominal ascites. Vasculature: The abdominal aorta is normal in course and caliber. Adenopathy: None. Pelvic viscera: The uterus is surgically absent. There is a 2 cm left ovarian follicle. Skeletal structures: No destructive osseous lesions are seen. IMPRESSION: 1. No acute intra-abdominal or pelvic findings 2. No renal, ureteral, or bladder calculi identified 3. No evidence of bowel obstruction. No evidence of free air 4. No evidence of acute diverticulitis. No evidence of acute appendicitis. 5. Surgically absent gallbladder and uterus Electronically signed by: Stanford Rios M.D. 11/27/2017 5:46 PM Dictated Date/Time: 11/27/2017 5:40 PM
[2017-11-27 18:05] LABS: BASO % 0.3 %; BASO ABS # 0.03 K/uL (0-0.2); EOS % 1.8 %; EOS ABS # 0.17 K/uL (0-0.5); HEMATOCRIT 41.5 % (37-47); HEMOGLOBIN 13.9 g/dL (12.0-16.0); IG# 0.03 K/uL (0.00-0.02); LYMPH % 20.7 %; LYMPH ABS # 1.98 K/uL (1.2-3.4); MEAN CELL VOLUME 89.6 fL (80-100); MEAN CORPUSCULAR HGB CONC 33.5 g/dl (32-36); MONO % 5.7 %; MONO ABS # 0.55 K/uL (0.11-0.59); NEUT % 71.2 %; NEUT ABS # 6.82 K/uL (1.4-6.5); PLATELET COUNT 245 K/uL (130-400); RED CELL DISTRIBUTION WIDTH CV 13.9 % (11.5-14.5); RED CELL DISTRIBUTION WIDTH SD 45.5 fL (36.4-46.3); WHITE BLOOD COUNT 9.58 K/uL (4.8-10.8)
[2017-11-27 18:28] LABS: CALCIUM 9.8 mg/dl (8.5-10.1); CREATININE 0.68 mg/dl (0.60-1.20); POTASSIUM 3.8 mmol/L (3.5-5.1); TOTAL PROTEIN 7.7 gm/dl (6.4-8.2)
[2017-11-27] MEDS ORDERED: HYDR-5688 PO (19:58)
[2017-11-27] MEDS ORDERED: NORCO 5/325MG HOME PACK PO ONE (20:00)
[2017-11-27 20:04] VITALS: BP 139/74; PULSE 85; O2SAT 100
== END 2017-11-27 20:17 | disposition home or self-care (01) ==
LOC: C.EDA 16:12 → EDBD 16:12 → C.EDA 20:17
DX: R10.84 Generalized abdominal pain (principal); R03.0 Elevated blood-pressure reading, without diagnosis of hypertension; R11.0 Nausea; M54.9 Dorsalgia, unspecified; K21.9 Gastro-esophageal reflux disease without esophagitis; F17.200 Nicotine dependence, unspecified, uncomplicated; Z87.19 Personal history of other diseases of the digestive system; Z90.49 Acquired absence of other specified parts of digestive tract; Z79.899 Other long term (current) drug therapy

== ENCOUNTER 2019-02-04 11:11 | Inpatient (IN) ==
--- NOTE | 2019-01-13 09:04 | PAT Medication Instructions ---
Medication Instructions Date of Service January 13, 2019 Home Medications Medication Instructions Recorded ondansetron 4 mg PO Q6H PRN #8 tab 11/28/18 lorazepam 0.5 mg tablet 0.5 mg PO BID PRN #30 tab 12/03/18 acetaminophen 1,000 mg PO Q6H PRN ondansetron 4 mg PO Q6H PRN dicyclomine 10 mg capsule 10 mg PO TID PRN lorazepam 0.5 mg tablet 0.5 mg PO BID PRN omeprazole 40 mg capsule,delayed release 40 mg PO DAILY PRN cyanocobalamin (vitamin B-12) [Vitamin B-12] 1,000 mcg PO DAILY PRN cyclobenzaprine 10 mg PO TID PRN DO NOT take the morning of surgery dicyclomine 10 mg capsule 10 mg PO TID PRN cyanocobalamin (vitamin B-12) [Vitamin B-12] 1,000 mcg PO DAILY PRN cyclobenzaprine 10 mg PO TID PRN Take morning of surgery With a small sip of water, OTHERWISE NOTHING TO EAT OR DRINK AFTER MIDNIGHT: acetaminophen 1,000 mg PO Q6H PRN (okay to take up to 4 hours prior to surgery if needed) ondansetron 4 mg PO Q6H PRN (if needed) lorazepam 0.5 mg tablet 0.5 mg PO BID PRN (if needed) omeprazole 40 mg capsule,delayed release 40 mg PO DAILY PRN (if needed) Other Notes If you have any questions please call us at [phone] or [phone] or [phone] or [phone]
--- NOTE | 2019-01-14 08:32 | Anesthesiology Consultation ---
Date of Service January 14, 2019 Assessment & Plan (1) Encounter for pre-operative examination: Chart Review Chart Review: Pending: Refer to Additional Notes / Consult section (pending preop testing (labs, EKG)) and Patient seen in Pre Admission Testing Teaching & Discussion Pre-Anesthesia Teaching/Discussion Notes: Instructed NPO after midnight before surgery,except medications with 15 cc of water. Medication instructions provided according to the PAT guidelines. History Surgery Operation Date: 02/04/19 07:00 Proposed Procedures p Laparoscopic-Assisted Sigmoid Colon Resection - Soham Gonzalez, Height/Weight Height: 5 ft 3 in Weight: 98.7 kg Allergies Allergy/AdvReac Type Severity Reaction Status Date / Time ibuprofen Allergy Severe throat Verified 01/13/19 15:34 swelling pineapple Allergy Severe hives, Verified 01/13/19 15:34 throat swelling cefuroxime Allergy Intermediate hives, Verified 01/11/19 15:35 throat swelling glucosamine Allergy Intermediate hives, Verified 01/11/19 15:35 throat swelling Iodinated Contrast Media Allergy Intermediate hives, Verified 01/11/19 15:35 itchy, throat swelling metronidazole Allergy Intermediate hives, Verified 01/11/19 15:35 throat swelling Sulfa (Sulfonamide Allergy Intermediate hives, Verified 01/11/19 15:35 Antibiotics) throat swelling sulfamethoxazole Allergy Intermediate hives, Verified 01/11/19 15:35 [From Bactrim] throat swelling trimethoprim [From Bactrim] Allergy Intermediate hives, Verified 01/11/19 15:35 throat swelling Vinegar Allergy Severe throat Uncoded 01/13/19 15:34 swelling Medications Home Medications Medication Instructions Recorded Confirmed Last Taken acetaminophen 1,000 mg PO Q6H PRN 11/28/18 01/11/19 Unknown ondansetron 4 mg PO Q6H PRN #8 tab 11/28/18 01/11/19 12/30/18 dicyclomine 10 mg capsule 10 mg PO TID PRN cap 12/03/18 01/11/19 Unknown lorazepam 0.5 mg tablet 0.5 mg PO BID PRN #30 tab 12/03/18 01/11/19 12/31/18 10:00 omeprazole 40 mg capsule,delayed 40 mg PO DAILY PRN 12/15/18 01/11/19 12/21/18 release cyanocobalamin (vitamin B-12) 1,000 mcg PO DAILY PRN 12/21/18 01/11/19 Unknown [Vitamin B-12] cyclobenzaprine 10 mg PO TID PRN 12/21/18 01/11/19 Unknown Past Medical History Medical History Depression with anxiety Meningioma under surveillance (incidental finding) Thyroid goiter under surveillance Common migraine without aura Anxiety GERD (gastroesophageal reflux disease) occasional Anemia Chronic back pain Deep vein thrombosis hx of in 2010 in right leg, unknown cause, no recurrence Kidney stones Obesity Exercise / Class Metabolic Activity III < 4 Walking/Shop/Light housework Past Family History Family History Mother Family history of reaction to anesthesia nausea/vomiting Brother Family history of reaction to anesthesia nausea/vomiting Sister Family history of reaction to anesthesia nausea/vomiting Family history of diabetes mellitus Past Surgical History Surgical History Hx of discectomy lumbar History of repair of hiatal hernia History of laparoscopic cholecystectomy History of colonoscopy History of dilatation and curettage History of esophagogastroduodenoscopy (EGD) History of hysterectomy with unilateral oophorectomy right removed History of tooth extraction all teeth Past Anesthesia History No Family Hx of Anesthesia Complications (except PONV (sister, brother, mother)) and Other "Slow to wake" x 2 episodes; no issues with other surgeries/anesthesia. History of PONV No Hx of PONV and No Hx of Motion Sickness Social History Smoking Status: Never smoker Do You Dip or Chew Tobacco: No Hx Alcohol Use: Yes Alcohol type: beer alcohol intake frequency: a few times a month Hx Substance Use: No substance use type: does not use Review of Systems Occasional reflux (s/p multiple ER visits over the past years to rule out cardiac etiology which cardiac workup was negative, no change x years). Occasional heart racing, palpitations. Patient denies chest pain, shortness of breath, cough, wheezing. Physical Exam Vital Signs VITALS BP 142/90 P71 TEMP 98.2 SP02 100%RA RESP 16 Testing Chest X-Ray Date: 02/12/18 Findings: + NAD
[2019-01-14 11:13] LABS: Basophils # (auto) 0.04 K/uL (0-0.2); Basophils % (auto) 0.8 %; Eosinophils # (auto) 0.15 K/uL (0-0.5); Eosinophils % (auto) 2.9 %; Hematocrit (blood only) 39.5 % (37-47); Hemoglobin 12.9 g/dL (12.0-16.0); Immature Granulocytes # (auto) 0.01 K/uL (0.00-0.02); Immature Granulocytes % (auto) 0.2 %; Lymphocytes # (auto) 1.12 K/uL (1.2-3.4); Lymphocytes % (auto) 21.5 %; Mean Corpuscular Hemoglobin 30.1 pg (25-34); Mean Corpuscular Hgb Conc 32.7 g/dL (32-36); Mean Corpuscular Volume 92.1 fL (80-100); Mean Platelet Volume 11.7 fL (7.4-10.4); Monocytes # (auto) 0.39 K/uL (0.11-0.59); Monocytes % (auto) 7.5 %; Neutrophils % (auto) 67.1 %; Platelet Count 234 K/uL (130-400); RDW Coefficient of Variation 13.7 % (11.5-14.5); RDW Standard Deviation 45.5 fL (36.4-46.3); Red Blood Count 4.29 M/uL (4.2-5.4); White Blood Count 5.21 K/uL (4.8-10.8)
[2019-01-14 12:30] LABS: Creatinine Clr Calc Pharmacy 117.9 ml/min; Est GFR (African American) 123.5; Est GFR (Non-African American) 106.5; Potassium 4.4 mmol/L (3.5-5.1)
[~2019-02-04 11:11] MED LIST changes: -ACET-1256 PO; -ATV5X PO; +CLINDAMYCIN 900 MG in DEXTROSE 5% 50 ML IV SCH; -DIPH25CA5 PO; +LIDOCAINE HCL 2% 2 ML VIAL/AMP(20MG/ML) INFIL ONE; +LR 15ML/HR IV SCH; +MIDAZOLAM HCL 1 MG/ML 2ML VIAL ONE; +ONDANSETRON INJ 2 MG/ML 2 ML VIAL ONE; -PRLSR20 PO; +PROPOFOL IV EMULSION 10 MG/ML 20 ML VIAL IV ONE; +ROCURONIUM BROMIDE 10 MG/ML 5 ML VIAL ONE; +fentaNYL citrate 100 MCG/2 ML VIAL ONE
[2019-02-04] MEDS ORDERED: ATROPINE SULFATE 0.1 MG/ML 10ML SYR IV PRN (13:07)
[2019-02-04] MEDS ORDERED: PROMETHAZINE HCL 6.25 MG in SODIUM CHLORIDE 0.9% 50 ML IV PRN (13:07)
[2019-02-04] MEDS ORDERED: ONDANSETRON INJ 2 MG/ML 2 ML VIAL IV PRN (13:07)
--- NOTE | 2019-02-04 13:16 | History & Physical Report ---
Date of Service February 04, 2019 Assessment & Plan (1) Colonic mass: With a long discussion previously as well as today. It is unable to be safely removed endoscopically and therefore this must be removed surgically. We should be able to do a segmental resection of the sigmoid colon with the tattooed area and polyp incorporated within it. We discussed other options. We discussed risks of surgery which include bleeding, infection, injury to other organs such as ureter or bowel bladder etc. We discussed DVT PE PA CVA anastomotic strictures or leaks etc. we gave her literature previously. I answered all their questions. We will proceed with laparoscopic sigmoid colon resection today. History of Present Illness Primary Care Provider: Sarah Juan MD This is a 38-year-old female who I met in the hospital following a routine colonoscopy for bleeding. She had a sigmoid lesion that was sessile and unable to be completely removed by GI. He did tattoo the area. 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 She had a CT scan done preoperatively which was negative. Allergies Allergy/AdvReac Type Severity Reaction Status Date / Time ibuprofen Allergy Severe throat Verified 02/04/19 11:42 swelling pineapple Allergy Severe hives, Verified 02/04/19 11:42 throat swelling cefuroxime Allergy Intermediate hives, Verified 02/04/19 11:42 throat swelling glucosamine Allergy Intermediate hives, Verified 02/04/19 11:42 throat swelling Iodinated Contrast Media Allergy Intermediate hives, Verified 02/04/19 11:42 itchy, throat swelling metronidazole Allergy Intermediate hives, Verified 02/04/19 11:42 throat swelling Sulfa (Sulfonamide Allergy Intermediate hives, Verified 02/04/19 11:42 Antibiotics) throat swelling sulfamethoxazole Allergy Intermediate hives, Verified 02/04/19 11:42 [From Bactrim] throat swelling trimethoprim [From Bactrim] Allergy Intermediate hives, Verified 02/04/19 11:42 throat swelling Vinegar Allergy Severe throat Uncoded 01/13/19 15:34 swelling Home Medications Home Medications Medication Instructions Recorded Confirmed Type acetaminophen 1,000 mg PO Q6H PRN 11/28/18 02/04/19 History ondansetron 4 mg PO Q6H PRN #8 tab 11/28/18 02/04/19 Rx dicyclomine 10 mg capsule 10 mg PO TID PRN cap 12/03/18 02/04/19 History lorazepam 0.5 mg tablet 0.5 mg PO BID PRN #30 tab 12/03/18 02/04/19 Rx omeprazole 40 mg capsule,delayed 40 mg PO DAILY PRN 12/15/18 02/04/19 History release cyanocobalamin (vitamin B-12) 1,000 mcg PO DAILY PRN 12/21/18 02/04/19 History [Vitamin B-12] cyclobenzaprine 10 mg PO TID PRN 12/21/18 02/04/19 History Past Med/Surg History Family History Mother Family history of reaction to anesthesia nausea/vomiting Brother Family history of reaction to anesthesia nausea/vomiting Sister Family history of reaction to anesthesia nausea/vomiting Family history of diabetes mellitus Social History Preferred Language: Slovenian Communication Ability: Effective Visual Impairment: No Limitations Hearing Ability: Normal Button Cutter Required: No Beliefs That Will Affect Care: None marital status: Current Living Situation: Spouse Other Information That Helps Us Care for You: No Feels Safe at Home: Yes Safety Concerns: Feels Safe At This Time Smoking Status: Never smoker Do You Dip or Chew Tobacco: No ; Second Hand Exposure: No ; Tobacco Cessation Education Requested by Patient: No Hx Alcohol Use: Yes Alcohol type: beer Hx Substance Use: No Review of Systems All systems reviewed & are unremarkable except as noted in HPI & below Physical Exam Constitutional: WD/WN, vitals as above no acute distress and not ill appearing Eyes: PERRL, conjunctivae normal, anicteric sclerae EOM intact bilaterally ENMT: external ear and nose normal, oropharynx normal Ears: no hearing impairment Neck: trachea midline, no thyromegaly Respiratory: normal respiratory effort; no respiratory distress and does not use accessory muscles Cardiovascular: Rate/Rhythm: regular rate and regular rhythm Gastrointestinal (Abdomen): normal bowel sounds, soft, nontender, no hepatosplenomegaly Skin: no rashes, warm and dry Psychiatric: Orientation: alert, oriented x 3 and cooperative Results & Data Vital Signs (Past 12 Hours) Vital Signs Temp Pulse Resp BP Pulse Ox 02/04/19 11:45 36.6 C 86 20 138/89 99
[2019-02-04] MEDS ORDERED: BUPIVACAINE 0.5 % 5 MG/1 ML MPF 30ML VIAL ONE (13:27)
[2019-02-04] MEDS ORDERED: EPINEPHrine INJ 1 MG/ML AMP ONE (13:28)
[2019-02-04] MEDS ORDERED: ROCURONIUM BROMIDE 10 MG/ML 5 ML VIAL ONE ×5 (14:55)
[2019-02-04] MEDS ORDERED: fentaNYL citrate 100 MCG/2 ML VIAL ONE ×2 (15:12→15:48)
[2019-02-04] MEDS ORDERED: GLYCOPYRROLATE 0.2 MG/ML VIAL ONE (15:38)
[2019-02-04] MEDS ORDERED: NEOSTIGMINE METHYLSULFATE 5 MG/5 ML SYR ONE (15:38)
--- NOTE | 2019-02-04 15:53 | Post Operative Brief Note ---
PG Immediate Post Op with CF Date of Surgery February 04, 2019 Pre & Post Diagnosis Operation Date: 02/04/19 12:40 Pre-Op Diagnosis: Sigmoid Colon Mass Post-Op Diagnosis: Sigmoid Colon Mass I identified the patient and participated in the time-out.: Yes Procedure Operation Date: 02/04/19 12:40 Actual Procedures p Laparoscopic Sigmoid Colectomy(Bilateral) - Soham Gonzalez DO Surgeon Soham Gonzalez DO Senior Technical Editor bella Kenney Estimated Blood Loss 10 Findings Consistent with Post-Op Diagnosis Specimens Specimen Description: A. sigmoid colon B. distal margin C. proximal margin with suture Drains Cifuentes Catheter and Jacky-Conde Drain
[2019-02-04] MEDS: HYDROmorphone INJ 1 MG/ML SYRINGE IV PRN ×4 (16:09→16:35)
--- NOTE | 2019-02-04 17:22 | Anesthesiology Progress Note ---
Date of Service February 04, 2019 Anesthesia Post Procedure Vital Signs Vital Signs: Temp Pulse Pulse Resp BP BP Pulse Ox 02/04/19 16:55 81 17 125/78 99 02/04/19 16:45 36.2 C L 68 18 124/83 100 02/04/19 16:35 75 17 113/81 100 02/04/19 16:25 70 18 126/93 97 02/04/19 16:15 71 20 130/85 97 02/04/19 16:05 76 21 139/79 98 02/04/19 15:56 36.5 C 92 H 23 106/91 98 02/04/19 11:45 36.6 C 86 20 138/89 99 Pain Intensity Abdomen: Pain Intensity: 4 Transfer of Care Handoff Completed per policy Notes Mental Status: alert / awake / arousable Patient Amnestic to Procedure: Yes Nausea / Vomiting: adequately controlled Pain: adequately controlled Airway Patency, RR, SpO2: stable & adequate BP & HR: stable & adequate Hydration State: stable & adequate Anesthetic Complications: no major complications apparent
[2019-02-04] MEDS ORDERED: MoRPHine SULFATE 2 MG/ML CARP IV PRN (17:24)
--- NOTE | 2019-02-04 17:44 | Operative Report ---
PG Post Operative Report Pre & Post Diagnosis Operation Date: 02/04/19 12:40 Pre-Op Diagnosis: Sigmoid Colon Mass Post-Op Diagnosis: Sigmoid Colon Mass I identified the patient and participated in the time-out.: Yes Procedure Operation Date: 02/04/19 12:40 Actual Procedures p Laparoscopic Sigmoid Colectomy(Bilateral) - Soham Gonzalez DO Surgeon Soham Gonzalez DO Grinder Operator bella Kenney Estimated Blood Loss 10 Findings Consistent with Post-Op Diagnosis Specimens sigmoid colon Description of Procedure After informed consent was obtained the patient was taken to the operating room and placed in supine position. After successful intubation the patient was placed in the low lithotomy position with yellowfin stirrups. A Cifuentes catheter was sterilely placed. The abdomen perineum and rectum etc. were all sterilely prepped and draped in usual fashion. The patient's arms had been tucked. I began with a supraumbilical incision with 11 blade scalpel. This was carried down through the soft tissues and cautery. The anterior rectus fascia was opened using cautery and two #0 Vicryl stay sutures were placed. Peritoneum was elevated with hemostats and incised under direct vision using a Metzenbaum scissor. A finger sweep was performed. A 12 mm Archibald trocar was placed and the abdomen was insufflated to 20 mmHg. Laparoscope was inserted. A right lower quadrant 12 mm port a right mid abdominal 5 mm port and eventually a left lower quadrant 5 mm port were all placed under direct vision. As I examined the abdomen there was no evidence of any gross abnormalities other than some tattoo staining. I began by using the harmonic scalpel to mobilize the sigmoid and left colon along the white line of Toldt. I carried this up to the splenic flexure and down to the peritoneal reflection in the pelvis. I was able to easily identify the tattoo ayden placed by GI. I was also able to identify the left ureter to keep it out of harm's way as well. She had a floppy redundant sigmoid colon which made things easier. Once I had freed up enough of the colon I picked out a spot distal to the tattoo ayden and created a small window using the harmonic scalpel. A ODELL purple cartridge 60 mm stapler was used to transect the bowel at this point. I then took down the mesentery of the sigmoid colon again using the harmonic scalpel. We took this up for approximately 5 cm proximal to the tattoo ayden. I marked this area with a marking stitch. Next we elongated the left lower quadrant port site incision and opened the fascia using cautery from above. We were able to towel off the wound and then deliver the sigmoid colon out through this wound. We clamped off the bowel with bowel clamps proximal to the marking stitch. I then divided the bowel using a Caldwell scissor. It was then passed off and opened on the back table to ensure that we had good margins and that we had the lesion which we did. Next I sized the bowel which was approximately 28 mm. 2-0 [address] was [address] to place a pursestring suture. The anvil of a 28 mm circular stapler was placed into the bowel and secured using the pursestring device. This was then dunked back down into the abdominal cavity. This point we changed our gloves. I closed the fascia using 0 PDS in running fashion. We then reinsufflated the abdomen. The anvil laid easily over the pelvic brim. We did have plenty of rectal stump as well. We then brought in the handle of an EEA stapler into the rectal stump. We deployed the spike above the staple line and connected the anvil to the anvil and secured them together and fired it creating a circular functional end-to-end anastomosis. Both donut holes were intact and were sent as proximal and distal specimens as well. The anastomosis looked good and there was no kinking of the bowel. We insufflated under water with a rigid sigmoidoscope and there was no indication of a leak. There was adequate hemostasis. We thoroughly irrigated the pelvis. Final look around showed no other abnormalities. Trochars were all removed and the abdomen desufflated. Prior to doing this we did place a 10 flat Jacky-Conde drain in the pelvis and brought out through 1 of the port sites. It was secured to skin using 2-0 silk. The fascia the camera port was closed using 0 Vicryl in [id number] fashion. All wounds were irrigated and closed using 4-0 Monocryl. Marcaine was injected around it for postoperative analgesia and skin glue used as a dressing. The patient was awakened extubated and transferred recovery in stable condition. My physician program assistant was present to the entire case. He helped prep the patient. Helped run the camera as well as assisted with all aspects of the resection and anastomosis. He also helped with wound closure and dressing placement. I attest to the content of the Intraoperative Record and any orders documented therein. Any exceptions are noted below.
[2019-02-04] MEDS: ACETAMINOPHEN 1,000 MG/100 ML VIAL IV SCH (19:00)
[2019-02-04] MEDS: MoRPHine SULFATE 4 MG/ML 1 ML CARP\\VIAL IV PRN ×2 (19:00→21:25)
[2019-02-04] MEDS: LACTATED RINGER'S 1,000 ML IV SCH (19:06)
[2019-02-04] MEDS: CLINDAMYCIN 600 MG in DEXTROSE 5% 50 ML IV SCH (21:42)
[2019-02-05] MEDS: LACTATED RINGER'S 1,000 ML IV SCH (01:18)
[2019-02-05] MEDS: ACETAMINOPHEN 1,000 MG/100 ML VIAL IV SCH ×3 (02:12→19:31)
[2019-02-05] MEDS: CLINDAMYCIN 600 MG in DEXTROSE 5% 50 ML IV SCH ×2 (05:04→12:41)
[2019-02-05 05:34] LABS: Basophils # (auto) 0.01 K/uL (0-0.2); Basophils % (auto) 0.1 %; Eosinophils # (auto) 0.08 K/uL (0-0.5); Eosinophils % (auto) 0.9 %; Hematocrit (blood only) 35.4 % (37-47); Hemoglobin 11.7 g/dL (12.0-16.0); Immature Granulocytes # (auto) 0.03 K/uL (0.00-0.02); Immature Granulocytes % (auto) 0.3 %; Lymphocytes # (auto) 1.29 K/uL (1.2-3.4); Lymphocytes % (auto) 14.3 %; Mean Corpuscular Hemoglobin 30.4 pg (25-34); Mean Corpuscular Hgb Conc 33.1 g/dL (32-36); Mean Corpuscular Volume 91.9 fL (80-100); Mean Platelet Volume 10.7 fL (7.4-10.4); Monocytes # (auto) 0.74 K/uL (0.11-0.59); Monocytes % (auto) 8.2 %; Neutrophils # (auto) 6.84 K/uL (1.4-6.5); Neutrophils % (auto) 76.2 %; Platelet Count 204 K/uL (130-400); RDW Coefficient of Variation 13.6 % (11.5-14.5); RDW Standard Deviation 45.4 fL (36.4-46.3); Red Blood Count 3.85 M/uL (4.2-5.4); White Blood Count 8.99 K/uL (4.8-10.8)
[2019-02-05 06:07] LABS: BUN Creatinine Ratio 14.4 (10-20); Calcium 8.3 mg/dl (8.5-10.1); Creatinine Clr Calc Pharmacy 133.2 ml/min; Est GFR (African American) 130.7; Est GFR (Non-African American) 112.8; Potassium 3.7 mmol/L (3.5-5.1)
--- NOTE | 2019-02-05 08:06 | Anesthesiology Progress Note ---
Date of Service February 05, 2019 Anesthesia Post Procedure Vital Signs Vital Signs: Temp Pulse Pulse Pulse Resp BP BP 02/05/19 07:40 36.9 C 88 16 130/86 02/05/19 04:09 36.9 C 82 16 113/77 02/04/19 23:18 36.8 C 85 16 112/76 02/04/19 21:37 70 109/74 02/04/19 20:34 36.8 C 98 H 18 116/77 02/04/19 19:15 36.4 C L 96 H 18 113/77 02/04/19 18:22 36.5 C 95 H 17 120/81 02/04/19 17:41 36.5 C 97 H 16 120/82 02/04/19 17:15 36.5 C 95 H 18 126/85 02/04/19 16:55 81 17 125/78 02/04/19 16:45 36.2 C L 68 18 124/83 02/04/19 16:35 75 17 113/81 02/04/19 16:25 70 18 126/93 02/04/19 16:15 71 20 130/85 02/04/19 16:05 76 21 139/79 02/04/19 15:56 36.5 C 92 H 23 106/91 02/04/19 11:45 36.6 C 86 20 138/89 Pulse Ox 02/05/19 07:40 93 02/05/19 04:09 94 02/04/19 23:18 94 02/04/19 21:37 95 02/04/19 20:34 99 02/04/19 19:15 98 02/04/19 18:22 98 02/04/19 17:41 97 02/04/19 17:15 94 02/04/19 16:55 99 02/04/19 16:45 100 02/04/19 16:35 100 02/04/19 16:25 97 02/04/19 16:15 97 02/04/19 16:05 98 02/04/19 15:56 98 02/04/19 11:45 99 Pain Intensity Abdomen: Pain Intensity: 4 Notes Mental Status: alert / awake / arousable and participated in evaluation Patient Amnestic to Procedure: Yes Nausea / Vomiting: adequately controlled Pain: adequately controlled Airway Patency, RR, SpO2: stable & adequate BP & HR: stable & adequate Hydration State: stable & adequate Anesthetic Complications: no major complications apparent and Pt Satisfied with anesthetic care
[2019-02-05] MEDS: MoRPHine SULFATE 4 MG/ML 1 ML CARP\\VIAL IV PRN (08:27)
[2019-02-05] MEDS: NSS + 20MEQ KCL 20 MEQ/1,000 ML BAG IV SCH ×3 (08:33→23:41)
[2019-02-05] MEDS ORDERED: HYDROmorphone PCA 30 MG/30 ML IV PRN (08:39)
[2019-02-05] MEDS ORDERED: NALOXONE HCL 0.4 MG/1 ML VIAL/CARP IV PRN (08:39)
--- NOTE | 2019-02-05 08:44 | Surgery Progress Note ---
Date of Service February 05, 2019 Assessment & Plan (1) Colonic mass: POD 1 lap sigmoid for large polyp start clears add SERVICE TECHNICIAN, cont Ofirmev decrease IVF and add K+ leave montalvo for today start Lovenox pt seen/as above. main issue is pain control. VASQUEZ looks good will start clears/keep montalvo and add auto service mechanic. [facility]. Subjective c/o pain, no nausea, not OOB Physical Exam Gastrointestinal (Abdomen): Inspection/Auscultation: + abdominal surgical drain present (70 cc, mostly serous); abdomen not distended Percussion/Palpation: abdomen soft Results & Data Vital Signs (Past 12 Hours) Vital Signs Temp Pulse Resp BP Pulse Ox 02/05/19 07:40 36.9 C 88 16 130/86 93 02/05/19 04:09 36.9 C 82 16 113/77 94 02/04/19 23:18 36.8 C 85 16 112/76 94 02/04/19 21:37 70 109/74 95 PG Care Time/CCT Total # of Minutes Spent Total Time Spent with Patient: Total time spent is greater than 50% in coordination of care (as documented) at patient's floor/unit and/or counseling patient:
[2019-02-05] MEDS: ENOXAPARIN INJ 40 MG/0.4 ML SYR SQ SCH (11:03)
[2019-02-05] MEDS: SODIUM CHLORIDE 0.9% 1000ML 1,000 ML IV SCH (11:14)
[2019-02-05] MEDS ORDERED: ACETAMINOPHEN SOL 650 MG/20.3 ML UDC PO SCH (12:00)
[2019-02-05] MEDS: ONDANSETRON INJ 2 MG/ML 2 ML VIAL IV PRN ×3 (15:29→23:41)
[2019-02-06] MEDS: ACETAMINOPHEN 1,000 MG/100 ML VIAL IV SCH ×3 (04:00→20:13)
[2019-02-06] MEDS: ONDANSETRON INJ 2 MG/ML 2 ML VIAL IV PRN ×2 (06:15→16:13)
[2019-02-06] MEDS: NSS + 20MEQ KCL 20 MEQ/1,000 ML BAG IV SCH ×3 (08:15→20:47)
[2019-02-06] MEDS: SODIUM CHLORIDE 0.9% 1000ML 1,000 ML IV SCH (08:16)
[2019-02-06] MEDS: ENOXAPARIN INJ 40 MG/0.4 ML SYR SQ SCH (08:17)
[2019-02-06 08:41] LABS: Basophils # (auto) 0.01 K/uL (0-0.2); Basophils % (auto) 0.1 %; Eosinophils # (auto) 0.14 K/uL (0-0.5); Eosinophils % (auto) 1.3 %; Hematocrit (blood only) 37.6 % (37-47); Hemoglobin 12.1 g/dL (12.0-16.0); Immature Granulocytes # (auto) 0.02 K/uL (0.00-0.02); Immature Granulocytes % (auto) 0.2 %; Lymphocytes # (auto) 0.63 K/uL (1.2-3.4); Lymphocytes % (auto) 5.8 %; Mean Corpuscular Hgb Conc 32.2 g/dL (32-36); Mean Corpuscular Volume 93.3 fL (80-100); Mean Platelet Volume 10.7 fL (7.4-10.4); Monocytes # (auto) 0.43 K/uL (0.11-0.59); Monocytes % (auto) 3.9 %; Neutrophils # (auto) 9.69 K/uL (1.4-6.5); Neutrophils % (auto) 88.7 %; Platelet Count 195 K/uL (130-400); RDW Coefficient of Variation 13.7 % (11.5-14.5); RDW Standard Deviation 46.9 fL (36.4-46.3); Red Blood Count 4.03 M/uL (4.2-5.4); White Blood Count 10.92 K/uL (4.8-10.8)
--- NOTE | 2019-02-06 08:59 | Surgery Progress Note ---
Date of Service February 06, 2019 Assessment & Plan (1) Colonic mass: Postoperative day #2 status post laparoscopic sigmoid resection Patient had some blood with a bowel movement. H&H is stable Did not encourage Lovenox but did explain that she must wear her compression stockings Would continue with clear liquid diet Will add Phenergan as an antiemetic Consider analgesics as etiology for nausea Peristalsis may have completely returned as yet which may also be her reason for nausea Encouraged her to get out of bed today Subjective Postoperative day #2, status post laparoscopic sigmoid resection Complains of continuous nausea Had incontinence of bowels with blood Abdominal discomfort is unchanged Has not been eating Has not allowed Lovenox injections Removed compression stockings Was out of bed for short time yesterday Jacky-Conde drain had 65 cc yesterday and 90 cc last shift all of which is serosanguineous Physical Exam Gastrointestinal (Abdomen): Inspection/Auscultation: + abdomen distended (Mild) and + abdominal surgical incision (Clean, dry and intact) Percussion/Palpation: + abdomen tender (Incisional mostly) and abdomen soft Bowel sounds are returning. There are decreased at the present time but they are present and the pitch is normal Results & Data Vital Signs (Past 12 Hours) Vital Signs Temp Pulse Resp BP Pulse Ox 02/06/19 07:31 37.1 C 78 16 103/66 97 02/06/19 07:08 36.7 C 105 H 20 165/111 H 92 02/06/19 04:10 36.6 C 89 20 138/89 91 02/05/19 23:43 92 02/05/19 22:56 36.9 C 85 18 127/84 87 L Laboratory Results 02/06/19 02/06/19 Range/Units 08:27 08:27 WBC 10.92 H (4.8-10.8) K/uL RBC 4.03 L (4.2-5.4) M/uL Hgb 12.1 (12.0-16.0) g/dL Hct 37.6 (37-47) % MCV 93.3 (80-100) fL MCH 30.0 (25-34) pg MCHC 32.2 (32-36) g/dL RDW Std Deviation 46.9 H (36.4-46.3) fL RDW Coeff of Madhu 13.7 (11.5-14.5) % Plt Count 195 (130-400) K/uL MPV 10.7 H (7.4-10.4) fL Immature Gran % (Auto) 0.2 % Neut % (Auto) 88.7 % Lymph % (Auto) 5.8 % [place] % (Auto) 3.9 % Eos % (Auto) 1.3 % Baso % (Auto) 0.1 % Immature Gran # (Auto) 0.02 (0.00-0.02) K/uL Neut # (Auto) 9.69 H (1.4-6.5) K/uL Lymph # (Auto) 0.63 L (1.2-3.4) K/uL [place] # (Auto) 0.43 (0.11-0.59) K/uL Eos # (Auto) 0.14 (0-0.5) K/uL Baso # (Auto) 0.01 (0-0.2) K/uL Sodium Pending Potassium Pending Chloride Pending Carbon Dioxide Pending Anion Gap Pending BUN Pending Creatinine Pending Est Cr Clr Drug Dosing Pending Est GFR ( Amer) Pending Est GFR (Non-Af Amer) Pending BUN/Creatinine Ratio Pending Glucose Pending Calcium Pending
[2019-02-06 09:09] LABS: BUN Creatinine Ratio 12.1 (10-20); Calcium 8.3 mg/dl (8.5-10.1); Creatinine Clr Calc Pharmacy 165.2 ml/min; Est GFR (African American) 140.3; Est GFR (Non-African American) 121.1; Potassium 3.9 mmol/L (3.5-5.1)
[2019-02-06] MEDS: PROMETHAZINE HCL 12.5 MG in SODIUM CHLORIDE 0.9% 50 ML IV PRN (10:27)
[2019-02-07] MEDS: NSS + 20MEQ KCL 20 MEQ/1,000 ML BAG IV SCH ×3 (02:47→18:38)
[2019-02-07] MEDS: ACETAMINOPHEN 1,000 MG/100 ML VIAL IV SCH ×2 (02:48→10:18)
[2019-02-07] MEDS ORDERED: Nursing to Pharmacy Communication ONE (02:55)
[2019-02-07] MEDS: SODIUM CHLORIDE 0.9% 1000ML 1,000 ML IV SCH (07:23)
[2019-02-07] MEDS: ENOXAPARIN INJ 40 MG/0.4 ML SYR SQ SCH (07:24)
[2019-02-07 08:04] LABS: Basophils # (auto) 0.01 K/uL (0-0.2); Basophils % (auto) 0.1 %; Eosinophils # (auto) 0.19 K/uL (0-0.5); Hematocrit (blood only) 35.1 % (37-47); Hemoglobin 11.3 g/dL (12.0-16.0); Immature Granulocytes # (auto) 0.01 K/uL (0.00-0.02); Immature Granulocytes % (auto) 0.1 %; Lymphocytes # (auto) 0.99 K/uL (1.2-3.4); Lymphocytes % (auto) 10.2 %; Mean Corpuscular Hgb Conc 32.2 g/dL (32-36); Mean Corpuscular Volume 93.1 fL (80-100); Mean Platelet Volume 10.7 fL (7.4-10.4); Monocytes # (auto) 0.46 K/uL (0.11-0.59); Monocytes % (auto) 4.7 %; Neutrophils # (auto) 8.04 K/uL (1.4-6.5); Neutrophils % (auto) 82.9 %; Platelet Count 203 K/uL (130-400); RDW Coefficient of Variation 13.7 % (11.5-14.5); Red Blood Count 3.77 M/uL (4.2-5.4)
[2019-02-07 08:38] LABS: BUN Creatinine Ratio 18.9 (10-20); Calcium 8.4 mg/dl (8.5-10.1); Creatinine Clr Calc Pharmacy 158.8 ml/min; Est GFR (African American) 138.5; Est GFR (Non-African American) 119.5; Potassium 3.9 mmol/L (3.5-5.1)
--- NOTE | 2019-02-07 10:26 | Surgery Progress Note ---
Date of Service February 07, 2019 Assessment & Plan (1) Colonic mass: Postoperative day #3 status post laparoscopic assisted sigmoid colon resection Improved today Suspect nausea and dry heaves were due to the IV pain medicine We will discontinue SURETY BOND AGENT Continue IV Tylenol Can advance to full liquid diet Strongly encouraged her to ambulate in the hallways Subjective Postoperative day #3 status post laparoscopic sigmoid colon resection Patient feels better today Stopped using SURETY BOND AGENT pump and nausea and vomiting have resolved. She did use it once last night after which she did develop nausea. IV Tylenol has been controlling her pain well Had second bowel movement that was liquid but also had some blood tinge to it. There was less than the previous. She is wearing her compression stockings now Has not ambulated well Physical Exam Gastrointestinal (Abdomen): Inspection/Auscultation: normal bowel sounds; abdomen not distended Percussion/Palpation: + abdomen tender (Incisional only) and abdomen soft Results & Data Vital Signs (Past 12 Hours) Vital Signs Temp Pulse Resp BP BP Pulse Ox 02/07/19 07:16 36.8 C 90 20 143/90 H 96 02/07/19 07:08 36.8 C 68 18 122/78 99 02/07/19 02:47 37.1 C 87 15 147/97 H 94 Laboratory Results 02/07/19 02/07/19 Range/Units 07:52 07:52 WBC 9.70 (4.8-10.8) K/uL RBC 3.77 L (4.2-5.4) M/uL Hgb 11.3 L (12.0-16.0) g/dL Hct 35.1 L (37-47) % MCV 93.1 (80-100) fL MCH 30.0 (25-34) pg MCHC 32.2 (32-36) g/dL RDW Std Deviation 47.0 H (36.4-46.3) fL RDW Coeff of Madhu 13.7 (11.5-14.5) % Plt Count 203 (130-400) K/uL MPV 10.7 H (7.4-10.4) fL Immature Gran % (Auto) 0.1 % Neut % (Auto) 82.9 % Lymph % (Auto) 10.2 % [place] % (Auto) 4.7 % Eos % (Auto) 2.0 % Baso % (Auto) 0.1 % Immature Gran # (Auto) 0.01 (0.00-0.02) K/uL Neut # (Auto) 8.04 H (1.4-6.5) K/uL Lymph # (Auto) 0.99 L (1.2-3.4) K/uL [place] # (Auto) 0.46 (0.11-0.59) K/uL Eos # (Auto) 0.19 (0-0.5) K/uL Baso # (Auto) 0.01 (0-0.2) K/uL Sodium 139 (136-145) mmol/L Potassium 3.9 (3.5-5.1) mmol/L Chloride 110 H (98-107) mmol/L Carbon Dioxide 19 L (21-32) mmol/L Anion Gap 10.0 (3-11) BUN 10 (7-18) mg/dl Creatinine 0.52 L (0.6-1.2) mg/dl Est Cr Clr Drug Dosing 158.8 ml/min Est GFR ( Amer) 138.5 Est GFR (Non-Af Amer) 119.5 BUN/Creatinine Ratio 18.9 (10-20) Glucose 89 (70-99) mg/dl Calcium 8.4 L (8.5-10.1) mg/dl
[2019-02-07] MEDS ORDERED: MoRPHine SULFATE 2 MG/ML CARP IV PRN (17:52)
[2019-02-07] MEDS: PROMETHAZINE HCL 12.5 MG in SODIUM CHLORIDE 0.9% 50 ML IV PRN (22:02)
[2019-02-08] MEDS: NSS + 20MEQ KCL 20 MEQ/1,000 ML BAG IV SCH (02:54)
[2019-02-08 06:10] LABS: Creatinine Clr Calc Pharmacy 192.1 ml/min; Est GFR (African American) 147.5; Est GFR (Non-African American) 127.2
[2019-02-08] MEDS: ENOXAPARIN INJ 40 MG/0.4 ML SYR SQ SCH (09:07)
[2019-02-08] MEDS ORDERED: OXYCODONE HCL IR 5 MG TAB (IMMEDIATE RELEASE) PO PRN (09:57)
[2019-02-08] MEDS ORDERED: HYDROCODONE/ACETAMOPHEN 5/325MG TAB PO PRN ×2 (09:58)
--- NOTE | 2019-02-08 10:02 | Surgery Progress Note ---
Date of Service February 08, 2019 Assessment & Plan (1) Colonic mass: POD 4 lap sigmoid for large polyp keep on full liquids for now try [place] cont drain stop IVF as above. feeling ok. tolerating liquids. +small /loose bm's VASQUEZ clear doing as expected. potential d/c next 24-[address] pending Subjective some flatus and liquid BM, felt a little blaoted after full liquids this Am, had nausea from morphine Physical Exam Gastrointestinal (Abdomen): Inspection/Auscultation: + abdominal surgical drain present (serous); abdomen not distended Percussion/Palpation: abdomen soft Results & Data Vital Signs (Past 12 Hours) Vital Signs Temp Pulse Pulse Resp BP Pulse Ox 02/08/19 07:46 36.8 C 70 14 120/78 92 02/07/19 22:47 37.1 C 70 16 139/87 92 PG Care Time/CCT Total # of Minutes Spent Total Time Spent with Patient: Total time spent is greater than 50% in coordination of care (as documented) at patient's floor/unit and/or counseling patient:
--- NOTE | 2019-02-09 08:37 | Surgery Progress Note ---
Date of Service February 09, 2019 Assessment & Plan (1) Colonic mass: doing well. ok for d/c. instructions given. will add diflucan for oral candidiasis. she is to resume her PPI at home ( has not been taking it recently) f/u in 1 week. Subjective doing well. no major complaints. refugio diet. would like to go home. does have some epigastric discomfort and a sore tongue/throat Physical Exam 2 Physical Exam: alert. 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 wounds all look good. no sign of infection Results & Data Vital Signs (Past 12 Hours) Vital Signs Temp Pulse Resp BP Pulse Ox 02/09/19 07:28 36.8 C 62 16 129/84 97 02/08/19 23:05 37.1 C 86 16 133/73 95 PG Care Time/CCT Total # of Minutes Spent Total Time Spent with Patient: Total time spent is greater than 50% in coordination of care (as documented) at patient's floor/unit and/or counseling patient:
[2019-02-09] MEDS: ENOXAPARIN INJ 40 MG/0.4 ML SYR SQ SCH (08:38)
[2019-02-09] MEDS ORDERED: FLUCONAZOLE 200 MG/100 ML BAG IV ONE (09:00)
--- NOTE | 2019-02-09 09:30 | Discharge Summary ---
Date of Service February 09, 2019 Admission HPI Per Admitting Provider This is a 38-year-old female who I met in the hospital following a routine colonoscopy for bleeding. She had a sigmoid lesion that was sessile and unable to be completely removed by GI. He did tattoo the area. 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 She had a CT scan done preoperatively which was negative. 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 Respiratory normal respiratory effort Gastrointestinal (Abdomen) Inspection/Auscultation: + abdominal surgical incision (c/d/i with dermabond overtop) Percussion/Palpation: abdomen soft Discharge Data Allergies Allergy/AdvReac Type Severity Reaction Status Date / Time ibuprofen Allergy Severe throat Verified 02/04/19 11:42 swelling pineapple Allergy Severe hives, Verified 02/04/19 11:42 throat swelling cefuroxime Allergy Intermediate hives, Verified 02/04/19 11:42 throat swelling glucosamine Allergy Intermediate hives, Verified 02/04/19 11:42 throat swelling Iodinated Contrast Media Allergy Intermediate hives, Verified 02/04/19 11:42 itchy, throat swelling metronidazole Allergy Intermediate hives, Verified 02/04/19 11:42 throat swelling Sulfa (Sulfonamide Allergy Intermediate hives, Verified 02/04/19 11:42 Antibiotics) throat swelling sulfamethoxazole Allergy Intermediate hives, Verified 02/04/19 11:42 [From Bactrim] throat swelling trimethoprim [From Bactrim] Allergy Intermediate hives, Verified 02/04/19 11:42 throat swelling Vinegar Allergy Severe throat Uncoded 02/06/19 09:15 swelling Procedures Performed Operation Date: 02/04/19 12:40 Actual Procedures p Laparoscopic Sigmoid Colectomy(Bilateral) - Soham Gonzalez, DO Hospital Course (1) Colonic mass: This is a 38y F who presents to [facility] for a scheduled colon resection after she was found to have a colonic mass via colonoscopy that was unable to be completely removed by GI. On 02/04/19 the patient went to the OR with Dr. Gonzalez and underwent a laparoscopic sigmoid colon resection. The patient tolerated the procedure well, see operative report for full details. Patient had some issues with nausea postop, likely attributed to pain medication, that was managed with prn anti-emetics. The patient's diet was advanced slowly as bowel function returned, from clears to full liquids to low fiber. Pain was initially managed with prn IV medication & a [employer], then changed to orals as diet was advanced. [place] catheter removed and patient voiding spontaneously afterwards. Patient's VASQUEZ drain remained serosanguineous. Activity was encouraged during her hospitalization. On 02/09/19 the patient's VASQUEZ drain was removed and she was deemed stable for discharge to home. Surgical incisions c/d/i. She was tolerating a diet and pain controlled. She was sent home on a course of Diflucan for leukoplakia on her tongue. She was instructed to follow up in clinic within 1-2 weeks for post surgical follow up. Total Time Total Time Spent Total Time Spent (In Minutes): 15 Discharge Plan Discharge Items Patient Disposition: Home - Self-Care Reason For Visit: Sigmoid Colon Mass Discharge Diagnosis: laparoscopic colon resection Activity: Per Instructions section Lifting: No more than 10 pounds Bathing Comment: you may shower Exercise/Sports: Wait until after follow-up appointment Driving/Machine Use: at least one week. do not resume driving while taking narcotics for pain Non-emergency contact: Surgeon Call non-emergency contact if: you have any medication questions, your symptoms worsen, your pain is not controlled, your pain is worsening, you have a fever, your temperature is above 101.5, your wound has increased redness, your wound has increased drainage and your wound pain has increased Follow-up/Referrals: Soham Gonzalez, [Surgeon] - (Please call to schedule follow up in clinic within 1 week. You may call the office sooner if you have any questions/concerns.) Sarah Juan MD [Primary Care Provider] - Diet: Low Fiber Addtl Attending Provider Instructions: Pending Studies at Discharge: No Stand-Alone Forms: My [facility] Medications and DC Order Prescriptions: New hydrocodone-acetaminophen [Irvona] 5-325 mg tablet 1 - 2 tab PO .every 4-6 hours PRN (Reason: pain, for initial therapy. Max 8 per day) Qty: 15 RF: 0 fluconazole [Diflucan] 100 mg tablet 100 mg PO DAILY Qty: 4 RF: 0 Continued dicyclomine 10 mg capsule 10 mg PO TID PRN (Reason: abdominal discomfort) RF: 0 lorazepam [Ativan] 0.5 mg tablet 0.5 mg PO BID PRN (Reason: Anxiety) Qty: 30 RF: 2 omeprazole 40 mg capsule,delayed release(DR/EC) 40 mg PO DAILY PRN (Reason: Acid Reflux) RF: 0 ondansetron 4 mg tablet,disintegrating 4 mg PO Q6H PRN (Reason: nausea and vomiting) Qty: 8 RF: 0 cyanocobalamin (vitamin B-12) [Vitamin B-12] 1,000 mcg Tablet 1,000 mcg PO DAILY PRN (Reason: tiredness) RF: 0 cyclobenzaprine 10 mg Tablet 10 mg PO TID PRN (Reason: Muscle Pain) RF: 0 Discontinued acetaminophen 500 mg Tablet 1,000 mg PO Q6H PRN (Reason: Fever Or Pain) RF: 0 Discharge Orders: Discharge Order (Routine); Ordered 02/09/19 Ordered By: Cherry Elizabeth/Other Patient Handouts: Diet Low Residue Admission Data Admit Date/Time: 02/04/19 16:02 Attending Provider: Soham Gonzalez Admit Provider: Soham Gonzalez Primary Care Provider: aSrah Juan Other Interventions: Discharge Summary Assessment (RN) Last Done: 02/09/19 09:15
--- NOTE | 2019-02-12 06:18 | Coding Query ---
PATHOLOGY To promote full compliance with coding requirements relating to patient care, physician participation is requested in all cases of voicer uncertainty. Please assist us with the question(s) below: Please review the Pathology report and please document any relevant diagnosis(es) below: Diagnosis(es):adenocarcinoma of colon Thank you Tita ESTES
== END 2019-02-09 12:04 | disposition home or self-care (01) | DRG 330 ==
LOC: ASU 11:11 → 3W 16:02